=== PATIENT | male | born 1945 | race Caucasian/White ===

== ENCOUNTER 2021-10-01 09:44 | Outpatient (CLI) | payer MEDICARE, SELFPAY ==
[2021-10-01 11:00] LABS: Basophils Absolute Auto 0.1 K/mm3 (0.0-0.1); Basophils Percent Auto 0.9 % (0.2-1.2); Eosinophils Absolute Auto 0.1 K/mm3 (0-0.3); Eosinophils Percent Auto 1.3 % (0-4.4); Hematocrit 51.6 % (42.0-52.0); Hemoglobin 17.3 g/dL (14.0-18.0); Immature Granulocyte Absolute 0.07 K/mm3 (0.00-0.031); Immature Granulocyte Percent A 0.9 % (0-0.5); Lymphocytes Absolute Auto 1.04 K/mm3 (0.9-3.2); Lymphocytes Percent Auto 12.7 % (18.3-44.2); Mean Corpuscular HGB Conc 33.5 g/dl (32-36); Mean Corpuscular Hemoglobin 30.7 pg (26-34); Mean Corpuscular Volume 91.7 fl (80-100); Mean Platelet Volume 9.9 fl (7.4-10.4); Monocytes Absolute Auto 0.8 K/mm3 (0.1-0.6); Monocytes Percent Auto 10.1 % (2.6-8.5); Neutrophils Absolute Auto 6.1 K/mm3 (1.3-6.7); Neutrophils Percent Auto 74.1 % (45.5-73.1); Platelet Count Result 253 k/mm3 (150-375); Red Blood Count 5.63 M/mm3 (4.6-6.20); Red Cell Distribution Width 13.2 % (11.5-14.5); White Blood Count 8.2 K/mm3 (4.5-10.0)
[2021-10-01 11:03] LABS: Urine Cotinine NEGATIVE
[2021-10-01 11:05] LABS: Albumin Level 4.7 g/dL (3.5-5.1); Anion Gap 9 mmol/L (8-16); Blood Urea Nitrogen 19 mg/dL (9-20); Calcium 9.2 mg/dL (8.4-10.2); Carbon Dioxide 30 mmol/L (22-30); Chloride 97 mmol/L (98-107); Estimated Glomerular Filt Rate > 60; Glucose 115 mg/dL (65-110); Potassium 4.5 mmol/L (3.4-5.0); Sodium 136 mmol/L (137-145)
[2021-10-01 11:31] LABS: Hemoglobin A1C 5.5 % (<5.7)
== END 2021-10-01 09:45 | disposition home or self-care (01) ==
LOC: ANHSURGERY 09:50
PROVIDERS: PCP Internal Medicine; Visit Provider Orthopaedic Surgery
DX: Z01.812 Encounter for preprocedural laboratory examination (principal); M16.11 Unilateral primary osteoarthritis, right hip; Z51.81 Encounter for therapeutic drug level monitoring; Z79.899 Other long term (current) drug therapy
CPT/HCPCS: 80048; 80307; 82040; 83036; 85025; 87070

== ENCOUNTER 2021-10-15 01:15 | Day surgery (SDC) | payer MEDICARE, SELFPAY ==
[2021-10-01 09:57] VITALS: BMI 31.5
--- NOTE | 2021-10-01 10:14 | PC.NURSE ---
Report to the Outpatient Waiting Room, entrance under the green pavilion located off [facility], at time 0600 on date _10/15/21 . OR Time: . - You and your visitor will be asked a series of questions to screen for COVID 19 for your protection. - A mask is required within the hospital. - Only one visitor is allowed at this time. Patient visitors will be guided where to wait when not with patient. Preoperative COVID Testing Requirements: No COVID Test needed if: (proof is required; if not received patient will have Rapid Test prior to entry) - Patient has received COVID Vaccine at least 14 days prior to procedure date or - Patient has positive COVID test result within last 90 days of surgery date. COVID Test needed if above criteria is not met If not COVID vaccinated a COVID test must be conducted within 72 hours of surgery and patient is asked to isolate self from time of testing until procedure. You will go to the [facility] [[email or web address] Testing Site for your COVID testing. The [facility] site is located at the corner of [address] [facility]. You will only be called if COVID results are positive and your surgeon may reschedule your elective surgery date. Patients may have clear liquids (water, carbonated beverages, clear teas, apple juice) until 3 hours prior to surgery with a maximum of 20 ounces. - No food from midnight until time of surgery - Infants may have breast milk until 4 hours before surgery, infant formula 6 hours prior to surgery. - Children will be allowed to drink immediately following surgery. If applicable, please bring a bottle or sippy cup to assist with drinking. Juice, water, soda, and popsicles are readily available. For infants on formula, please bring formula the day of surgery. Pacifiers are allowed. Take the following medications with a SIP of water the morning of surgery: _ATENOLOL Medications to discontinue per physician NONE Date to take last dose Please no make-up, nail danish, hairspray, perfume, deodorant, or body powder the day of surgery. No jewelry (including any body piercings) or valuables the day of surgery, leave them at home. Please take a shower or bath the night before, or the morning of, surgery with an antibacterial soap. Wear comfortable, loose fitting clothing. Children are encouraged to wear pajamas. - Jewelry must be removed prior to entering the operating room. Rings and piercings that are not removed may be cut off. - The hospital will not accept responsibility for valuables. - Please leave all valuables, including medications, at home the day of surgery. If you are going home after surgery, a licensed tram driver must drive you home. - NO public transportation without another adult. - We recommend that an adult stay with you for 24 hours following discharge. - We also recommend that you do not drive, make important decision, drink alcoholic beverages, or take any drugs that were not prescribed by your health care provider for at least 24 hours after your discharge time. For Pediatric surgeries, we recommend two adults accompany the child home (only one inside the building at this time). Follow any additional instructions given to you from your surgeon. VERBAL instructions given to _PATIENT and asked if any additional questions and then verbalized understanding. Patient advised to call surgeon office or pre surgery nurse liaison [phone] if any additional questions.
[2021-10-01 10:36] VITALS: BP 145/65; PULSE 54; RESP 16; TEMP 37.2; O2SAT 100
--- NOTE | 2021-10-10 12:15 | PM.IMHP ---
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 Patient has been having pain from his arthritic hip for well over a year. He tried diclofenac but was unable to tolerate this due to GI upset. He has been getting treated for prostate cancer and has had an excellent recovery from this. Patient feels at this point is ready to proceed total hip arthroplasty. He does have severe arthritis in the right hip seen on the x-rays Chief Complaint: Right hip DJD Review of Systems Review of Systems: All systems reviewed & are unremarkable except as noted in HPI and below PMFSH Family History Family History Sibling Family history of kidney disease Father Family history of diabetes mellitus in first degree relative Other Hypertension Social History Social History Smoking status: Never smoker Additional smoking assessment comments: DENIES ANY FORM OF TOBACCO USE Alcohol intake: current Spiritual care concerns: No Meds Home Medications and Allergies Home Medications Medication Instructions Recorded Confirmed Type acetaminophen [Tylenol] 650 mg PO PRN PRN 10/01/21 10/01/21 History atenolol 100 mg PO QAM 10/01/21 10/01/21 History hydrochlorothiazide 25 mg PO DAILY 10/01/21 10/01/21 History lisinopril 40 mg PO DAILY 10/01/21 10/01/21 History omeprazole 40 mg PO DAILY 10/01/21 10/01/21 History simvastatin 40 mg PO HS 10/01/21 10/01/21 History tamsulosin 0.8 mg PO QAM 10/01/21 10/01/21 History Allergies Allergy/AdvReac Type Severity Reaction Status Date / Time No Known Allergies Allergy Unverified 10/01/21 09:58 Exam Narrative: 76-year-old male alert pleasant. He is 5 ft 8 and 221 lb. He walks with a stiff right hip gait. He notes pain in the anterior lateral aspect of right hip with weight-bearing. He has a 2+ posterior tibial artery and 1+ dorsalis pedis pulse palpable. No edema in either lower extremity. His right hip flexes from 0-90 degrees with anterior lateral hip pain. Internal rotation lacks 30? from neutral, external rotation is to 40?. Stinchfield maneuver causes a mild anterior lateral hip pain. He has normal abduction strength in lateral position. Skin around the hip and groin are normal. Resp: Auscultation: clear to auscultation bilaterally Cardio: Rate: regular rate Rhythm: regular rhythm Assessment and Plan Additional Plan 76-year-old male has severe arthritis of the right hip with rather severe symptoms on a daily basis. He feels ready to proceed with total hip arthroplasty. Surgical procedure as well as the risks and complications were discussed in detail and all questions were answered and we proceed. He will see his primary care doctor pre-surgical clearance. He has also seen cardiology and has had an echo cardiogram done. That showed normal left ventricular function with ejection fraction at 60% patient has been cleared from cardiology standpoint plan use Eliquis for DVT prophylaxis. His nasal swab was negative. Chem panel is creatinine is 1.10 with a GFR greater than 60. Rest of his Chem panel was all within normal limits. Hemoglobin 17.3 platelets were 253. Patient will avoid any aspirin or ibuprofen products from prior surgery.
--- NOTE | 2021-10-11 13:29 | WPDANESEPPF ---
Anes - Initial Pre Proc Eval Procedure: Operation Date: 10/15/21 07:30 Proposed Procedures p Right Total Hip Arthroplasty, Direct Anterior Approach - Driss Garcia MD Date/Time: 10/11/21 13:29 Surgeon: Driss Garcia MD Pre Op Diagnosis: OA right hip Patient Data Age: 76 Gender: M Height: 1.78 m Weight: 99.7 kg Last Vital Signs Temp 37.2 C 10/01/21 10:36 Pulse 54 L 10/01/21 10:36 Resp 16 10/01/21 10:36 BP 145/65 H 10/01/21 10:36 Pulse Ox 100 10/01/21 10:36 Allergies Allergy/AdvReac Type Severity Reaction Status Date / Time No Known Allergies Allergy Verified 10/15/21 07:05 Home Medications Medication Instructions Recorded Confirmed Type acetaminophen [Tylenol] 650 mg PO PRN PRN 10/01/21 10/15/21 History atenolol 100 mg PO QAM 10/01/21 10/15/21 History hydrochlorothiazide 25 mg PO DAILY 10/01/21 10/15/21 History lisinopril 40 mg PO DAILY 10/01/21 10/15/21 History omeprazole 40 mg PO DAILY 10/01/21 10/15/21 History simvastatin 40 mg PO HS 10/01/21 10/15/21 History tamsulosin 0.8 mg PO QAM 10/01/21 10/15/21 History Patient hx anesthesia problems: none Family hx anesthesia problems: none Results Review: All pre-operative results and documents have been reviewed as part of the pre-operative evaluation. [facility] Past Medical History Medical History (Updated 10/11/21 @ 13:31 by Hal Armstrong MD) HTN (hypertension) Hyperlipidemia Obesity Prostate CA Family History Family History Sibling Family history of kidney disease Father Family history of diabetes mellitus in first degree relative Other Hypertension Social History Social History Smoking status: Never smoker Additional smoking assessment comments: DENIES ANY FORM OF TOBACCO USE Alcohol intake: current Living arrangements: with family Spiritual care concerns: No Anes - Eval Final PreProcedure Day of Procedure 10/11/21 13:29 Patient weight: obese Heart: regular rate and rhythm Lungs: clear to auscultation and normal air movement Airway: Mallampati scale class II Neurological: alert and oriented Last oral intake: >/= 8 hours ASA classification: III Emergent: no Anesthetic plan: proceed Anesthesia type and monitoring: general and regional spinal Results Review: All pre-operative results and documents have been reviewed as part of the pre-operative evaluation. Informed Consent: The patient's anesthetic plan and its attendant risks and benefits were discussed with the patient/family/POA. Questions were solicited and answers provided to the satisfaction of the patient/family/POA.
[2021-10-15] VITALS (10 sets, daily range): BP systolic 109–177; BP diastolic 45–85; PULSE 45–63; RESP 12–18; TEMP 36.1–37.1; O2SAT 96–100; BMI 31.8
--- NOTE | ~2021-10-15 | XR_ITS ---
EXAMINATION: XR hip RT 1V w AP pelvis DATE: 10/15/2021 12:45 INDICATION: Postoperative evaluation following right total hip arthroplasty TECHNIQUE: Anteroposterior and lateral views of the right hip were obtained. COMPARISON: Intraoperative radiograph dated 10/15/2021 FINDINGS: Interval completion of the right total hip arthroplasty with replacement of a femoral broach with a n oncemented femoral component. The final arthroplasty appears well seated in near anatomic alignment. Expected subcutaneous gas in the postoperative bed. No fractures identified. Left hip joint space is normal. IMPRESSION: 1. Right total hip arthroplasty, negative for postoperative purposes. Reviewed, dictated and finalized at location H. [employer]
--- NOTE | ~2021-10-15 | XR_ITS ---
EXAMINATION: XR surgery orthopedic DATE: 10/15/2021 11:48 INDICATION: Intraoperative evaluation during right total hip arthroplasty TECHNIQUE: A couple frontal views of the right hip was obtained. COMPARISON: None. FINDINGS: Intraoperative image during a right total hip arthroplasty demonstrate placement of an acetabular com ponent which appears in near anatomic alignment on the single image provided. A femoral broach is in place with the proximal tip centered over the acetabular component. Portions of the pelvis are exclu ded from the [id number]. No fractures in the visualized bones. Expected gas in the soft tissues of the operative bed. IMPRESSION: 1. Expected appearance during right total hip arthroplasty. Reviewed, dictated and finalized at location H. [employer]
[2021-10-15] MEDS: LACTATED RINGERS 1,000 ML 30 ML IV CONT (06:45)
[2021-10-15] MEDS: TRANEXAMIC ACID 1,000MG/ISO100 1,000 MG/100 ML BAG 200 MG IVPB (07:11)
[2021-10-15] MEDS: ACETAMINOPHEN 500 MG TABLET 1000 MG PO ×2 (07:13→18:49)
--- NOTE | 2021-10-15 07:18 | WPDHPUPDATE1 ---
History and Physical Update Update Date/Time: 10/15/21 07:18 History and Physical has been reviewed, including an updated exam of the patient. There are NO changes in the patient's condition. Risks, benefits, and alternatives have been discussed and questions answered. Patient agrees to proceed with procedure.
[2021-10-15] MEDS: ceFAZolin 2 GM/D5W 50 ML 2 GM/50 ML BAG IVPB (07:32)
[2021-10-15] MEDS: ceFAZolin SODIUM 1 GM VIAL 3 GM IRRIGATION (08:41)
[2021-10-15] MEDS: TRANEXAMIC ACID 1,000 MG/10 ML AMPUL 1000 MG IV PUSH (11:48)
[2021-10-15] MEDS: ceFAZolin SODIUM 1 GM VIAL 2 GM IV PUSH (11:50)
--- NOTE | 2021-10-15 12:10 | SUR.OPER ---
CELL SAVER RETURN 370ML GIVEN PER ANESTHESIA
--- NOTE | 2021-10-15 12:33 | P.OP_ITS ---
Procedure Note - Detailed Date of Procedure 10/15/21 Pre-op Diagnosis OA right hip Post-op Diagnosis same Procedure Performed Direct anterior approach right total hip arthroplasty Surgeon Driss Garcia MD Steward/[employer] Chris Anesthesia general and spinal Description of Procedure Patient was brought to the operating room and spinal anesthesia was administered. Boots were applied to the feet with padding and he was transferred the OSI [place] table and the right hip prepped draped usual fashion. He received 2 g of Ancef weight based vancomycin 1 g of tranexamic acid preoperatively. A 10 cm longitudinal incision was made starting 3 cm lateral to the ASIS. Dissection was carried down to the fascia over the tensor fascia kathryn which was longitudinally incised and elevated off the anterior 1/2 the tensor fascia kathryn muscle. The interval between rectus femoris and tensor fascia kathryn was developed and crossing branches of ascending lateral femoral circumflex vessels were ligated with suture and divided. Retractor placed in the anterior capsule the hip abducted internally rotated and the gluteus minimus carefully dissected free of the lateral capsule. Standard capsulotomy was performed. Femoral neck osteotomy was made according to preoperative template. Femoral head was removed and measured 53 mm in diameter. Acetabulum was exposed labrum excised we medialized with a 44 Reamer reamed up to the 55 in chose the 56 cup. It would not see to we gently reamed to 56 on the periphery and then the 56 cup seated with a excellent press fit. Single screw was placed into the ilium. Thirty-six inner diameter liner placed without difficulty. Femur was externally rotated extended in the interval between conjoined tendon and piriformis incised allowing the piriformis to flip posteriorly. The femur was broached to a size 8 and trialed. We initially trialed with the standard neck +5 head. This gave excellent stability but x-ray showed that we had diminished offset and length and a few mm and the leg lengths. Broach had a slight wiggle on torsional stress we were able to broach up to a size 9 countersink 2 mm we trialed with the high offset neck and the 1.5 head and this gave equal leg lengths and offset. The size 9 high offset Actis stem was fully seated. With excellent press fit. The stainless steel 1.5 x 36 head was impacted on the clean and dried trunnion. Wound again irrigated antibiotic solution hip reduced stability reconfirmed. Capsule was reapproximated with 2. Vicryl. Fascia of the tensor fascia kathryn closed with running 1. Vicryl. A drain was placed deep in the subQ and skin closed with 2-0 subcutaneous Vicryl and glue. The drain was apparently inadvertently removed during the dressing application. EBL was 750 cc. Three hundred seventy-five given back as Cell Saver. Two additional g of Ancef and 1 g of tranexamic acid given at time of wound closure. Closer to the end the operation patient had some bilious emesis and a small amount and an endotracheal tube was then placed to protect his airway the ETT suction was clear. Estimated Blood Loss 750 Drains No Packing No Pathology none sent Complications No immediate complications Condition stable Disposition PACU
--- NOTE | 2021-10-15 14:00 | ADMGEN ---
This patient, [facility] Cintron, was admitted to [facility] Surgery-2. Patient/family oriented to hospital policies and general routines including ID bracelet, bed and alarms, visiting hours, pain management, procedures, bathroom and other care routines, personal items, smoking policy, room service/diet, and visiting hours. Information on how to activate the Rapid Response Team has been discussed. Patient/Family are encouraged to report perceived risks to care and to ask questions if they do not understand what they are told or what they should do.
[2021-10-15] MEDS: ONDANSETRON INJ 4 MG/2 ML VIAL IV PUSH (14:59)
[2021-10-15] MEDS: SODIUM CHLORIDE 0.9% IV 1,000 ML 125 ML IV CONT (15:00)
--- NOTE | 2021-10-15 15:00 | WPDCN ---
Assessment and Plan Assessment and plan (1) Osteoarthritis of right hip: Code(s): M16.11 - Unilateral primary osteoarthritis, right hip Status: Acute Assessment and Plan: Postoperative day 0 status post direct anterior approach right total hip arthroplasty. Wound care, pain control, and DVT prophylaxis will be deferred to Dr. Garcia. PT/OT consulted. Check hemoglobin and hematocrit in a.m. (2) Hypertension: Code(s): I10 - Essential (primary) hypertension Status: Acute Assessment and Plan: Blood pressures were reviewed and they have been stable postoperatively. His antihypertensives will be reviewed and resumed as appropriate. (3) Hyperlipidemia: Code(s): E78.5 - Hyperlipidemia, unspecified Status: Acute Assessment and Plan: Continue statin and check LFTs in a.m.. (4) Benign prostatic hyperplasia: Code(s): N40.0 - Benign prostatic hyperplasia without lower urinary tract symptoms Status: Acute Assessment and Plan: Continue tamsulosin. Monitor I/O and watch for postoperative urinary retention. (5) Gastroesophageal reflux disease: Code(s): K21.9 - Gastro-esophageal reflux disease without esophagitis Status: Acute Assessment and Plan: Continue PPI. Additional Plan Thank you for allowing us to participate in this patient's care. Please do not hesitate to contact us with any questions. Supervising physician for this medical consultation is Dr. Mehran Fisher. HPI Data of Consult Date/Time: 10/15/21 15:00 Requesting Physician: Driss Garcia MD Primary Care Provider: Andrés BrownMD Consult Narrative Narrative: This is a pleasant 76-year-old male with osteoarthritis, hypertension, hyperlipidemia, GERD, and prostate cancer whom the hospitalist service has been consulted for management of his medical conditions postoperatively. He has had longstanding pain in his right hip that has not been amenable to conservative outpatient treatment and thus he elected for replacement today. His surgery was performed under general and spinal anesthesia with an estimated blood loss of 750 mL. Postoperatively has minimal discomfort in his hip though he does mention that his low back is a bit sore from the bed. He had mild nausea postoperatively but was able to eat dinner without issue. He has been up using a walker with physical therapy and did well with that. He denies fever, chills, sweats, chest pain, shortness of breath, and vomiting. He also denies paresthesias, skin color, and temperature changes distal to the surgical site. Review of Systems Review of Systems: Twelve systems were reviewed. No recent cold or flu symptoms. He denies sick contacts. No history of venous thromboembolism. Except as documented, all other systems were reviewed and are negative. [facility] Past Medical History Medical History (Updated 10/15/21 @ 22:52 by Maria A Dinero PA-C) Benign prostatic hyperplasia Gastroesophageal reflux disease History of shingles Hyperlipidemia Hypertension Obesity Surgical History Surgical History (Updated 10/15/21 @ 22:51 by Maria A Dinero PA-C) History of bilateral cataract extraction History of laparoscopic cholecystectomy (11/22/11) History of lumbar surgery (2018) History of right hip replacement (10/15/21) Family History Family History Sibling Family history of kidney disease Father Family history of diabetes mellitus in first degree relative Other Hypertension Social History Social History (Updated 10/15/21 @ 22:51 by Maria A Dinero PA-C) Social History: Surrogate decision maker: Anel Cintron, . Code status: Full code. Smoking status: Never smoker Alcohol intake: current Alcohol use details: Social alcohol use in
[2021-10-15] MEDS: SENNA/DOCUSATE SODIUM TABLET 2 TAB PO (17:14)
[2021-10-15] MEDS: CELECOXIB 200 MG CAPSULE PO (17:14)
[2021-10-15] MEDS: SIMVASTATIN 20 MG TABLET 40 MG PO (20:23)
[2021-10-15] MEDS: APIXABAN 2.5 MG TABLET PO (20:23)
[2021-10-15] MEDS: oxyCODONE HCL (*CRX) 5 MG TAB IR PO (20:23)
[2021-10-15] MEDS: PANTOPRAZOLE 40 MG TABLET PO (20:23)
[2021-10-16] VITALS: BP 121/47; PULSE 59; RESP 18; TEMP 37.1; O2SAT 93
[2021-10-16] MEDS: ACETAMINOPHEN 500 MG TABLET 1000 MG PO ×3 (00:01→12:20)
[2021-10-16 04:00] VITALS: BP 142/56; PULSE 71; RESP 16; TEMP 37.3; O2SAT 96
[2021-10-16] MEDS: oxyCODONE HCL (*CRX) 5 MG TAB IR PO (05:26)
[2021-10-16 06:18] LABS: Basophils Percent Auto 0.2 % (0.2-1.2); Eosinophils Percent Auto 0.1 % (0-4.4); Hematocrit 40.8 % (42.0-52.0); Hemoglobin 13.6 g/dL (14.0-18.0); Immature Granulocyte Absolute 0.12 K/mm3 (0.00-0.031); Immature Granulocyte Percent A 0.7 % (0-0.5); Lymphocytes Absolute Auto 0.79 K/mm3 (0.9-3.2); Lymphocytes Percent Auto 4.8 % (18.3-44.2); Mean Corpuscular HGB Conc 33.3 g/dl (32-36); Mean Corpuscular Hemoglobin 30.6 pg (26-34); Mean Corpuscular Volume 91.7 fl (80-100); Mean Platelet Volume 10.3 fl (7.4-10.4); Monocytes Absolute Auto 1.5 K/mm3 (0.1-0.6); Neutrophils Absolute Auto 14.1 K/mm3 (1.3-6.7); Neutrophils Percent Auto 85.2 % (45.5-73.1); Platelet Count Result 196 k/mm3 (150-375); Red Blood Count 4.45 M/mm3 (4.6-6.20); Red Cell Distribution Width 13.6 % (11.5-14.5); White Blood Count 16.5 K/mm3 (4.5-10.0)
[2021-10-16 06:44] LABS: Anion Gap 5 mmol/L (8-16); Blood Urea Nitrogen 26 mg/dL (9-20); Carbon Dioxide 26 mmol/L (22-30); Chloride 98 mmol/L (98-107); Estimated CRCL calculation 59 ml/min; Estimated Glomerular Filt Rate > 60; Glucose 112 mg/dL (65-110); Potassium 4.1 mmol/L (3.4-5.0); Sodium 129 mmol/L (137-145)
[2021-10-16 06:56] LABS: Alanine Aminotransferase 14 U/L (4-50); Albumin Level 3.5 g/dL (3.5-5.1); Alkaline Phosphatase 43 U/L (38-126); Aspartate Amino Transferase 29 U/L (17-59); Bilirubin,Total 0.9 mg/dL (0.2-1.3); Magnesium 1.8 mg/dL (1.6-2.3)
[2021-10-16 08:00] VITALS: BP 129/42; PULSE 68; RESP 16; TEMP 37.4; O2SAT 97
[2021-10-16] MEDS: CELECOXIB 200 MG CAPSULE PO (08:00)
--- NOTE | 2021-10-16 10:00 | P.PNAN_ITS ---
Anes - Prog Note Post-Op Date/Time: 10/16/21 10:00 Cardiovascular status: normal Respiratory status: normal Airway patency: baseline Mental status: baseline Post-Op hydration status: normal Vital Signs: Last Vital Signs Temp 99.2 F 10/16/21 04:00 Pulse 71 10/16/21 04:00 Resp 16 10/16/21 04:00 BP 142/56 H 10/16/21 04:00 Pulse Ox 96 10/16/21 04:00 Pain Score (VAS): 0/10 I/O: Intake & Output 10/15/21 10/16/21 10/16/21 23:59 07:59 15:59 Intake Total 250 1750 50 Output Total 160 200 Balance 90 1550 50 Laboratory Tests 10/16/21 05:47 10/16/21 05:47 10/16/21 10/16/21 10/16/21 05:47 05:47 05:47 WBC 16.5 H RBC 4.45 L Hgb 13.6 L D Hct 40.8 L MCV 91.7 MCH 30.6 MCHC 33.3 RDW 13.6 Plt Count 196 MPV 10.3 Immature Gran % (Auto) 0.7 H Neut % (Auto) 85.2 H Lymph % (Auto) 4.8 L [place] % (Auto) 9.0 H Eos % (Auto) 0.1 Baso % (Auto) 0.2 Lymph # (Auto) 0.79 L [place] # (Auto) 1.5 H Eos # (Auto) 0.0 Baso # (Auto) 0.0 Abs Immat Gran (auto) 0.12 H Absolute Neuts (auto) 14.1 H Absolute Nucleated RBC 0.0 Nucleated RBC % 0.0 Sodium 129 L Potassium 4.1 Chloride 98 Carbon Dioxide 26 Anion Gap 5 L BUN 26 H Creatinine 1.10 Estim Creat Clear Calc 59 Estimated GFR > 60 Glucose 112 H Calcium 8.0 L Magnesium 1.8 Total Bilirubin 0.9 Direct Bilirubin 0.0 AST 29 ALT 14 Alkaline Phosphatase 43 Total Protein 6.0 L Albumin 3.5 Patient Feedback: Patient satisfied with anesthetic care.
[2021-10-16] MEDS: polyethylene glycoL 3350 17 GM POWD.PACK PO (10:12)
[2021-10-16] MEDS: TAMSULOSIN HCL 0.4 MG CAPSULE 0.8 MG PO (10:12)
[2021-10-16 10:15] VITALS: PULSE 70
[2021-10-16] MEDS: PANTOPRAZOLE 40 MG TABLET PO (10:15)
[2021-10-16] MEDS: atenoloL 50 MG TABLET 100 MG PO (10:15)
[2021-10-16] MEDS: APIXABAN 2.5 MG TABLET PO (10:15)
[2021-10-16] MEDS: SENNA/DOCUSATE SODIUM TABLET 2 TAB PO (10:15)
--- NOTE | 2021-10-16 10:31 | PM.IMPN ---
Progress Note: A&P Assessment and Plan (1) Osteoarthritis of right hip: Code(s): M16.11 - Unilateral primary osteoarthritis, right hip Status: Acute Assessment and Plan: Postoperative day 0 status post direct anterior approach right total hip arthroplasty. Wound care, pain control, and DVT prophylaxis will be deferred to Dr. Garcia. PT/OT consulted. Check hemoglobin and hematocrit in a.m. (2) Hypertension: Code(s): I10 - Essential (primary) hypertension Status: Acute Assessment and Plan: Blood pressures were reviewed and they have been stable postoperatively. His antihypertensives will be reviewed and resumed as appropriate. (3) Hyperlipidemia: Code(s): E78.5 - Hyperlipidemia, unspecified Status: Acute Assessment and Plan: Continue statin and check LFTs in a.m.. (4) Benign prostatic hyperplasia: Code(s): N40.0 - Benign prostatic hyperplasia without lower urinary tract symptoms Status: Acute Assessment and Plan: Continue tamsulosin. Monitor I/O and watch for postoperative urinary retention. (5) Gastroesophageal reflux disease: Code(s): K21.9 - Gastro-esophageal reflux disease without esophagitis Status: Acute Assessment and Plan: Continue PPI. Additional Plan Thank you for allowing us to participate in this patient's care. Please do not hesitate to contact us with any questions. Supervising physician for this medical consultation is Dr. Mehran Fisher. Subjective Date/time seen: 10/16/21 10:31 Review of Systems Review of Systems: All systems reviewed & are unremarkable except as noted in HPI and below Constitutional: Constitutional: Denies excessive sweating, Denies headache(s), Denies increased appetite, Denies snoring and Denies weight gain Eyes: Eyes: Denies exophthalmos, Denies diplopia, Denies floaters and Denies loss of peripheral vision ENT: Denies facial pain, Denies headache(s), Denies odynophagia and Denies tinnitus Respiratory: Respiratory: Denies snoring Gastrointestinal: Gastrointestinal: Denies odynophagia Neurologic: Denies headache(s) Endocrine: Endocrine: Denies excessive sweating Exam Narrative: General: Well-developed elderly gentleman in the semi-Rose position in bed in no distress. Weight: 100.7 kg. BMI: 31.9. HEENT: PERRL, EOMI. Sclerae anicteric. Oral mucosa moist. Oropharynx clear. Neck: Supple. Respiratory: Lungs are clear to auscultation bilaterally. Cardiovascular: Regular rate and rhythm with S1-S2. Gastrointestinal: Abdomen is soft, nontender, and nondistended with positive bowel sounds. Skin: Warm and dry. No rash or lesions on limited exam. Extremities: No cyanosis, clubbing, or edema. Radial and pedal pulses intact. Musculoskeletal: Right hip dressing is clean, dry, and intact. No swelling or hematoma noted. He is neurovascular intact distal to the surgical site. Neurological: Alert. Cranial nerves 2-12 grossly intact. No gross focal deficits to casual conversation. Psychiatric: Pleasant and cooperative with normal mood and affect. Judgment and insight intact. Resp: Auscultation: clear to auscultation bilaterally Cardio: Rate: regular rate Rhythm: regular rhythm Objective Data Vital Signs Vital Signs: Vital Signs - 24 hr 10/15/21 12:32 10/15/21 12:45 10/15/21 13:00 Temperature 36.8 C Pulse Rate 45 L 58 L 61 Respiratory Rate 14 12 13 Blood Pressure 148/56 H 113/63 121/85 Pulse Oximetry 100 100 100 10/15/21 13:15 10/15/21 13:30 10/15/21 13:45 Temperature Pulse Rate 61 57 L 48 L Respiratory Rate 12 13 13 Blood Pressure 123/61 123/61 126/52 L Pulse Oximetry 96 96 96 10/15/21 13:55 10/15/21 17:30 10/15/21 20:00 Temperature 36.1 C L 37.1 C Pulse Rate 52 L 63 55 L Respiratory Rate 16 16 16 Blood Pressure 112/53 L 130/59
[2021-10-16 12:24] VITALS: BP 117/44; PULSE 57; RESP 16; TEMP 36.6; O2SAT 100
--- NOTE | 2021-10-16 14:30 | PC.NURSE ---
1430-Chiqui Ram NP rounded at bedside and OK with patient discharging home.
--- NOTE | 2021-10-16 14:59 | PM.PNORT ---
Progress Note: A&P Additional Plan Patient is postoperative day 1 after right total hip arthroplasty. He is doing well. He has no pain. He had a little bit of a cough this morning but that has completely resolved. Is afebrile with stable vital signs. His hemoglobin was 13.6 representing a mild acute blood loss anemia. His wound looks normal without significant swelling. It is dry. He has intact sensation motor function the right foot. Is able to transfer from sitting to standing position without difficulty today and is tolerating weight-bearing with his walker. He would like to go home. Will continue with the same orders. Subjective Subjective Date/Time Seen: 10/16/21 14:59 Objective Data Vital Signs Vital Signs: Vital Signs - 24 hr 10/15/21 17:30 10/15/21 20:00 10/16/21 00:00 Temperature 36.1 C L 37.1 C 37.1 C Pulse Rate 63 55 L 59 L Respiratory Rate 16 16 18 Blood Pressure 130/59 L 109/45 L 121/47 L Pulse Oximetry 96 97 93 10/16/21 04:00 10/16/21 08:00 10/16/21 10:15 Temperature 37.3 C 37.4 C Pulse Rate 71 68 70 Respiratory Rate 16 16 Blood Pressure 142/56 H 129/42 L Pulse Oximetry 96 97 10/16/21 12:24 Temperature 36.6 C Pulse Rate 57 L Respiratory Rate 16 Blood Pressure 117/44 L Pulse Oximetry 100 Intake/Output Intake/Output: Intake & Output 10/13/21 10/14/21 10/15/21 10/16/21 23:59 23:59 23:59 23:59 Intake Total 1050 2040 Output Total 210 450 Balance 840 1590 Meds/Results Medications: Active Medications Generic Name Dose Route Start Last Admin Trade Name Freq PRN Reason Stop Dose Admin Acetaminophen 1,000 mg 10/15/21 18:00 10/16/21 12:20 Acetaminophen 500 Mg Tablet PO 1,000 mg Q6H MILDRED Administration Apixaban 2.5 mg 10/15/21 21:00 10/16/21 10:15 Apixaban 2.5 Mg Tablet PO 2.5 mg Q12HR MILDRED Administration Atenolol 100 mg 10/16/21 09:00 10/16/21 10:15 Atenolol 50 Mg Tablet PO 100 mg QAM MILDRED Administration Celecoxib 200 mg 12/27/21 17:00 10/16/21 08:00 Celecoxib 200 Mg Capsule PO 200 mg BIDWM MILDRED Administration Morphine Sulfate 2 mg 10/15/21 13:49 Morphine Sulfate (*Crx) 2 Mg/Ml Inj IV PUSH Q1H PRN Pain Rated 7-10 Naloxone HCl 0.1 mg 10/15/21 13:49 Naloxone Hcl 0.4 Mg/Ml Vial IV PUSH Q2M PRN Opiate Reversal Ondansetron HCl 4 mg 10/15/21 13:49 10/15/21 14:59 Ondansetron Inj 4 Mg/2 Ml Vial IV PUSH 4 mg Q4H PRN Administration Nausea And Vomiting Oxycodone HCl 5 mg 10/15/21 17:00 10/16/21 14:22 Oxycodone Hcl (*Crx) 5 Mg Tab Ir PO Not Given Q4HR MILDRED Oxycodone HCl 5 mg 10/15/21 13:49 Oxycodone Hcl (*Crx) 5 Mg Tab Ir PO Q4H PRN Pain Rated 4-10 Pantoprazole Sodium 40 mg 10/15/21 21:00 10/16/21 10:15 Pantoprazole 40 Mg Tablet PO 40 mg Q12HR MILDRED Administration Polyethylene Glycol 17 gm 10/16/21 09:00 10/16/21 10:12 Polyethylene Glycol 3350 17 Gm Powd.Pack PO 17 gm QAM MILDRED Administration Senna/Docusate Sodium 2 tab 10/15/21 17:00 10/16/21 10:15 Senna/Docusate Sodium Tablet PO 2 tab BID MILDRED Administration Simvastatin 40 mg 10/15/21 21:00 10/15/21 20:23 Simvastatin 20 Mg Tablet PO 40 mg HS MILDRED Administration Tamsulosin HCl 0.8 mg 10/16/21 09:00 10/16/21 10:12 Tamsulosin Hcl 0.4 Mg Capsule PO 0.8 mg QAM MILDRED Administration Radiology Results: ITS Impressions Intraoperative X-Ray 10/15/21 11:59 IMPRESSION: 1. Expected appearance during right total hip arthroplasty. Hip/Pelvis X-Ray 10/15/21 12:53 IMPRESSION: 1. Right total hip arthroplasty, negative for postoperative purposes. Labs Labs: Laboratory Results - last 24 hr 10/16/21 10/16/21 10/16/21 05:47 05:47 05:47 WBC 16.5 H RBC 4.45 L Hgb 13.6 L D Hct 40.8 L MCV 91.7 MCH 30.6 MCHC 33.3 RDW 13.6 Plt Count 196 MPV 10.3 Immature Gran % (Auto) 0.7 H Neut % (Auto) 85.2 H Lymph %
--- NOTE | 2021-10-16 15:04 | PM.PNORT ---
Progress Note: A&P Assessment and Plan (1) History of right hip replacement: Onset Date: 10/15/21 Code(s): Z96.641 - Presence of right artificial hip joint Status: Inactive Subjective Subjective Date/Time Seen: 10/16/21 15:04 Objective Data Vital Signs Vital Signs: Vital Signs - 24 hr 10/15/21 17:30 10/15/21 20:00 10/16/21 00:00 Temperature 36.1 C L 37.1 C 37.1 C Pulse Rate 63 55 L 59 L Respiratory Rate 16 16 18 Blood Pressure 130/59 L 109/45 L 121/47 L Pulse Oximetry 96 97 93 10/16/21 04:00 10/16/21 08:00 10/16/21 10:15 Temperature 37.3 C 37.4 C Pulse Rate 71 68 70 Respiratory Rate 16 16 Blood Pressure 142/56 H 129/42 L Pulse Oximetry 96 97 10/16/21 12:24 Temperature 36.6 C Pulse Rate 57 L Respiratory Rate 16 Blood Pressure 117/44 L Pulse Oximetry 100 Intake/Output Intake/Output: Intake & Output 10/13/21 10/14/21 10/15/21 10/16/21 23:59 23:59 23:59 23:59 Intake Total 1050 2040 Output Total 210 450 Balance 840 1590 Meds/Results Medications: Active Medications Generic Name Dose Route Start Last Admin Trade Name Freq PRN Reason Stop Dose Admin Acetaminophen 1,000 mg 10/15/21 18:00 10/16/21 12:20 Acetaminophen 500 Mg Tablet PO 1,000 mg Q6H MILDRED Administration Apixaban 2.5 mg 10/15/21 21:00 10/16/21 10:15 Apixaban 2.5 Mg Tablet PO 2.5 mg Q12HR MILDRED Administration Atenolol 100 mg 10/16/21 09:00 10/16/21 10:15 Atenolol 50 Mg Tablet PO 100 mg QAM MILDRED Administration Celecoxib 200 mg 10/15/21 17:00 10/16/21 08:00 Celecoxib 200 Mg Capsule PO 200 mg BIDWM MILDRED Administration Morphine Sulfate 2 mg 10/15/21 13:49 Morphine Sulfate (*Crx) 2 Mg/Ml Inj IV PUSH Q1H PRN Pain Rated 7-10 Naloxone HCl 0.1 mg 10/15/21 13:49 Naloxone Hcl 0.4 Mg/Ml Vial IV PUSH Q2M PRN Opiate Reversal Ondansetron HCl 4 mg 10/15/21 13:49 10/15/21 14:59 Ondansetron Inj 4 Mg/2 Ml Vial IV PUSH 4 mg Q4H PRN Administration Nausea And Vomiting Oxycodone HCl 5 mg 10/15/21 17:00 10/16/21 14:22 Oxycodone Hcl (*Crx) 5 Mg Tab Ir PO Not Given Q4HR MILDRED Oxycodone HCl 5 mg 10/15/21 13:49 Oxycodone Hcl (*Crx) 5 Mg Tab Ir PO Q4H PRN Pain Rated 4-10 Pantoprazole Sodium 40 mg 10/15/21 21:00 10/16/21 10:15 Pantoprazole 40 Mg Tablet PO 40 mg Q12HR MILDRED Administration Polyethylene Glycol 17 gm 10/16/21 09:00 10/16/21 10:12 Polyethylene Glycol 3350 17 Gm Powd.Pack PO 17 gm QAM MILDRED Administration Senna/Docusate Sodium 2 tab 10/15/21 17:00 10/16/21 10:15 Senna/Docusate Sodium Tablet PO 2 tab BID MILDRED Administration Simvastatin 40 mg 10/15/21 21:00 10/15/21 20:23 Simvastatin 20 Mg Tablet PO 40 mg HS MILDRED Administration Tamsulosin HCl 0.8 mg 10/16/21 09:00 10/16/21 10:12 Tamsulosin Hcl 0.4 Mg Capsule PO 0.8 mg QAM MILDRED Administration Radiology Results: ITS Impressions Intraoperative X-Ray 10/15/21 11:59 IMPRESSION: 1. Expected appearance during right total hip arthroplasty. Hip/Pelvis X-Ray 10/15/21 12:53 IMPRESSION: 1. Right total hip arthroplasty, negative for postoperative purposes. Labs Labs: Laboratory Results - last 24 hr 10/16/21 10/16/21 10/16/21 05:47 05:47 05:47 WBC 16.5 H RBC 4.45 L Hgb 13.6 L D Hct 40.8 L MCV 91.7 MCH 30.6 MCHC 33.3 RDW 13.6 Plt Count 196 MPV 10.3 Immature Gran % (Auto) 0.7 H Neut % (Auto) 85.2 H Lymph % (Auto) 4.8 L [place] % (Auto) 9.0 H Eos % (Auto) 0.1 Baso % (Auto) 0.2 Lymph # (Auto) 0.79 L [place] # (Auto) 1.5 H Eos # (Auto) 0.0 Baso # (Auto) 0.0 Abs Immat Gran (auto) 0.12 H Absolute Neuts (auto) 14.1 H Absolute Nucleated RBC 0.0 Nucleated RBC % 0.0 Sodium 129 L Potassium 4.1 Chloride 98 Carbon Dioxide 26 Anion Gap 5 L BUN 26 H Creatinine 1.10 Estim Creat Clear Calc 59
--- NOTE | 2021-10-16 15:31 | PM.DS ---
DS: Admitting Diagnosis Discharge Date 10/16/2021 Admitting Diagnosis OA right hip, pre-planned right total hip arthroplasty DS: Discharge Diagnosis Discharge Diagnosis (1) Osteoarthritis of right hip: Code(s): M16.11 - Unilateral primary osteoarthritis, right hip Status: Acute Assessment and Plan: status post direct anterior approach right total hip arthroplasty. Wound care, pain control, and DVT prophylaxis will be deferred to Dr. Garcia. PT/OT consulted. dressed and getting around well - patient ready and wants to go home now. hemoglobin and hematocrit 13.6/40.8 today. with platelets 196 (2) Hypertension: Code(s): I10 - Essential (primary) hypertension Status: Acute Assessment and Plan: Blood pressures were reviewed and they have been stable postoperatively. His antihypertensives will be reviewed and resumed as appropriate. (3) Hyperlipidemia: Code(s): E78.5 - Hyperlipidemia, unspecified Status: Acute Assessment and Plan: Continue statin LFTs all WNL this morning. (4) Benign prostatic hyperplasia: Code(s): N40.0 - Benign prostatic hyperplasia without lower urinary tract symptoms Status: Acute Assessment and Plan: Continue tamsulosin. Monitor I/O 450 ml urine out + 1 unmeasured void out today. encouraged patient to urinate often at discharge education in person prior to D/C (5) Gastroesophageal reflux disease: Code(s): K21.9 - Gastro-esophageal reflux disease without esophagitis Status: Acute Assessment and Plan: Continue PPI. no epigastric pain, no N/V/reflux. (6) History of right hip replacement: Onset Date: 10/15/21 Code(s): Z96.641 - Presence of right artificial hip joint Status: Inactive Assessment and Plan: no new complaints. DS: Summary Hospital Course Hospital Course: 10/15/21 OA right hip treated by surgical Direct anterior approach right total hip arthroplasty by Surgeon: Driss Garcia MD. Patient recovering well. H/H stable, VS stable, voiding. Patient dressed and ready to go home. His will be assisting him. Ortho recommended: Use walker full-time weight-bearing as tolerated on right leg. Had patient hold his Lisinopril or Hydrochlorothiazide since admitted to the hospital and your blood pressures have been well controlled with your other medication Atenolol. He is to Keep all wounds or surgical incisions CLEAN and DRY, and Continue to use your Walker for all transfers. Stay well hydrated. Try to urinate every 2-3 hours. Avoid retaining urine or sitting for prolonged periods of time. Time Spent with Patient Time attestation: Total time spent providing and/or coordinating discharge services: 45 minutes Exam Narrative: General: Well-developed elderly gentleman in a chair, dressed and ready to go home, in no distress. Weight: 100.7 kg. BMI: 31.9. HEENT: PERRL, EOMI. Sclerae anicteric. Oral mucosa moist. Oropharynx clear. Neck: Supple. Respiratory: Lungs are clear to auscultation bilaterally. Cardiovascular: Regular rate and rhythm with S1-S2. Gastrointestinal: Abdomen is soft, nontender, and nondistended with positive bowel sounds. Skin: Warm and dry. No rash or lesions on limited exam. Extremities: No cyanosis, clubbing, or edema. Radial and pedal pulses intact. Musculoskeletal: Right hip dressing is clean, dry, and intact. No swelling or hematoma noted. He is neurovascular intact distal to the surgical site. Neurological: Alert. Cranial nerves 2-12 grossly intact. No gross focal deficits to casual conversation. Psychiatric: Pleasant and cooperative with normal mood and affect. Judgment and insight intact. Resp: Auscultation: clear to auscultation bilaterally Cardio: Rate: regular rate Rhythm: regular rhythm DS: Data Data Completed and Pending Labs on day of discharge: Labs from last 24 hours 10/16/21 10/16/21 10/16/21 05:47 05:47 0
== END 2021-10-16 15:49 | disposition home or self-care (01) ==
LOC: ANHSURGERY 05:46 → ANHSUROVER 13:56
PROVIDERS: Physician Assistant; PCP Internal Medicine; Visit Provider Orthopaedic Surgery
PROC: (CPT 27130; principal; 2021-10-15 07:30)
DX: M16.11 Unilateral primary osteoarthritis, right hip (principal); D62 Acute posthemorrhagic anemia; I10 Essential (primary) hypertension; E78.5 Hyperlipidemia, unspecified; N40.0 Benign prostatic hyperplasia without lower urinary tract symptoms; K21.9 Gastro-esophageal reflux disease without esophagitis; E66.9 Obesity, unspecified; Z68.31 Body mass index [BMI] 31.0-31.9, adult; Z85.46 Personal history of malignant neoplasm of prostate
CPT/HCPCS: 27130; 36415; 73501; 80048; 80076; 83735; 85025; 86850; 86900; 86901; 97110; 97116; 97162; 97165; 97530; 97535; A9270; C1776; J0171; J0330; J0690; J1100; J1885; J2250; J2270; J2370; J2405; J2704; J2710; J2795; J3010; J3370; J7030; J7120

== ENCOUNTER 2021-12-07 00:14 | Day surgery (SDC) | payer MEDICARE, SELFPAY ==
[2021-11-22 14:17] VITALS: BMI 31.3
[2021-12-07 08:20] VITALS: BP 149/63; PULSE 74; RESP 18; TEMP 36.6; O2SAT 100; BMI 30.7
--- NOTE | 2021-12-07 08:41 | WPDANESEPPF ---
Anes - Initial Pre Proc Eval Procedure: Operation Date: 12/07/21 10:00 Proposed Procedures p Screening Colonoscopy - Jose Quintero MD Date/Time: 12/07/21 08:41 Surgeon: Jose Quintero MD Pre Op Diagnosis: neoplasm screening Patient Data Age: 76 Gender: M Height: 1.78 m Weight: 97.1 kg Last Vital Signs Temp 36.6 C 12/07/21 08:20 Pulse 74 12/07/21 08:20 Resp 18 12/07/21 08:20 BP 149/63 H 12/07/21 08:20 Pulse Ox 100 12/07/21 08:20 Allergies Allergy/AdvReac Type Severity Reaction Status Date / Time No Known Allergies Allergy Verified 12/07/21 08:28 Home Medications Medication Instructions Recorded Confirmed Type atenolol 100 mg PO QAM 10/01/21 11/22/21 History hydrochlorothiazide 25 mg PO DAILY 10/01/21 11/22/21 History lisinopril 40 mg PO DAILY 10/01/21 11/22/21 History omeprazole 40 mg PO DAILY 10/01/21 11/22/21 History simvastatin 40 mg PO HS 10/01/21 11/22/21 History tamsulosin 0.8 mg PO QAM 10/01/21 11/22/21 History celecoxib [Celebrex] 200 mg PO DAILY #9 cap 10/16/21 11/22/21 Rx Patient hx anesthesia problems: none Family hx anesthesia problems: none Results Review: All pre-operative results and documents have been reviewed as part of the pre-operative evaluation. FORMERLY [facility], [facility] Past Medical History Medical History Arthritis Gastroesophageal reflux disease Hyperlipidemia Hypertension Obesity Prostate CA Surgical History Surgical History History of bilateral cataract extraction History of laparoscopic cholecystectomy (11/22/11) History of lumbar surgery (2018) History of right hip replacement (10/15/21) Family History Family History Sibling Family history of kidney disease Father Family history of diabetes mellitus in first degree relative Other Hypertension Social History Social History Social History: Surrogate decision maker: Anel Cintron, . Code status: Full code. Smoking status: Never smoker Alcohol intake: never Alcohol use details: Social alcohol use in moderation. Substance use: never Substance use type: does not use Living arrangements: with family Additional living arrangements comments: The patient lives with his in [place]. Additional occupation/education comments: Retired. Spiritual care concerns: No Anes - Eval Final PreProcedure Day of Procedure 12/07/21 08:41 Patient weight: overweight Heart: regular rate and rhythm Lungs: clear to auscultation Airway: Mallampati scale class II Neurological: alert and oriented Last oral intake: >/= 8 hours ASA classification: III Emergent: no Anesthetic plan: proceed Anesthesia type and monitoring: general GIVS and standard monitoring Results Review: All pre-operative results and documents have been reviewed as part of the pre-operative evaluation. Informed Consent: The patient's anesthetic plan and its attendant risks and benefits were discussed with the patient/family/POA. Questions were solicited and answers provided to the satisfaction of the patient/family/POA.
[2021-12-07] MEDS: LACTATED RINGERS 1,000 ML 150 ML IV CONT (08:44)
[2021-12-07] MEDS: AMPICILLIN 2 GM/NS 100 ML 2 GM/100 ML BAG IVPB (08:45)
--- NOTE | 2021-12-07 08:46 | PM.HPGS ---
History of Present Illness History of Present Illness Consent: Risks, benefits, and alternatives have been discussed and questions answered. Patient agrees to proceed with procedure. Chief complaint: neoplasm screening Narrative: Kaiser Cintron is a 76 year old male referred for colon cancer screening Review of Systems Review of Systems: All systems reviewed & are unremarkable except as noted in HPI and below PMFSH Past Medical History Medical History Arthritis Gastroesophageal reflux disease Hyperlipidemia Hypertension Obesity Prostate CA Surgical History Surgical History History of bilateral cataract extraction History of laparoscopic cholecystectomy (11/22/11) History of lumbar surgery (2018) History of right hip replacement (10/15/21) Family History Family History Sibling Family history of kidney disease Father Family history of diabetes mellitus in first degree relative Other Hypertension Social History Social History Social History: Surrogate decision maker: Anel Cintron, . Code status: Full code. Smoking status: Never smoker Alcohol intake: never Alcohol use details: Social alcohol use in moderation. Substance use: never Substance use type: does not use Living arrangements: with family Additional living arrangements comments: The patient lives with his in [place]. Additional occupation/education comments: Retired. Spiritual care concerns: No Meds Home Medications and Allergies Home Medications Medication Instructions Recorded Confirmed Type atenolol 100 mg PO QAM 10/01/21 11/22/21 History hydrochlorothiazide 25 mg PO DAILY 10/01/21 11/22/21 History lisinopril 40 mg PO DAILY 10/01/21 11/22/21 History omeprazole 40 mg PO DAILY 10/01/21 11/22/21 History simvastatin 40 mg PO HS 10/01/21 11/22/21 History tamsulosin 0.8 mg PO QAM 10/01/21 11/22/21 History celecoxib [Celebrex] 200 mg PO DAILY #9 cap 10/16/21 11/22/21 Rx Allergies Allergy/AdvReac Type Severity Reaction Status Date / Time No Known Allergies Allergy Verified 12/07/21 08:28 Vital Signs Vital Signs - 24 hr 12/07/21 08:20 Temperature 36.6 C Pulse Rate 74 Respiratory Rate 18 Blood Pressure 149/63 H Pulse Oximetry 100 Exam Resp: Auscultation: clear to auscultation bilaterally Cardio: Rate: regular rate Rhythm: regular rhythm GI: GI Palp: Yes Soft to palpation and No Tenderness to palpation present (GI) Assessment and Plan Assessment and plan (1) Colon cancer screening: Code(s): Z12.11 - Encounter for screening for malignant neoplasm of colon Status: Acute Assessment and Plan: Colonoscopy with possible biopsy or polypectomy or cautery or injection of substances.
[2021-12-07 09:37] VITALS: BP 110/56; PULSE 72; RESP 17; O2SAT 94
[2021-12-07 09:47] VITALS: BP 93/54; PULSE 68; RESP 18; O2SAT 97
[2021-12-07 09:57] VITALS: BP 129/71; PULSE 70; RESP 16; O2SAT 99
== END 2021-12-07 10:15 | disposition home or self-care (01) ==
PROVIDERS: PCP Internal Medicine; Visit Provider Internal Medicine Gastroenterology
PROC: 0DJD8ZZ Inspection of Lower Intestinal Tract, Via Natural or Artificial Opening Endoscopic (ICD-10-PCS; CPT 45378; principal; 2021-12-07 10:00)
DX: Z12.11 Encounter for screening for malignant neoplasm of colon (principal); K63.5 Polyp of colon; K57.30 Diverticulosis of large intestine without perforation or abscess without bleeding; I10 Essential (primary) hypertension; E78.5 Hyperlipidemia, unspecified; K21.9 Gastro-esophageal reflux disease without esophagitis; Z85.46 Personal history of malignant neoplasm of prostate
CPT/HCPCS: 45380; 88305; J0290; J2704; J7120

== ENCOUNTER 2024-06-04 14:57 | Emergency (ER) | payer MEDICARE, SELFPAY ==
[2024-06-04 14:58] VITALS: BP 138/55; PULSE 69; RESP 20; TEMP 36.3; O2SAT 97
[2024-06-04 15:03] LABS: Glucose Point of Care 95 mg/dl (65-105)
[2024-06-04 19:10] VITALS: BP 117/54; PULSE 64; RESP 20; TEMP 36.3; O2SAT 95
[2024-06-04 20:41] VITALS: PULSE 66; RESP 23; O2SAT 97
--- NOTE | 2024-06-04 20:42 | ED.GENADULT ---
HPI - General Adult General Chief complaint: Unspecified Stated complaint: hot, gets dizzy and then nauseous Time Seen by Provider: 06/04/24 20:27 Source: patient Mode of arrival: ambulatory Limitations: no limitations History of Present Illness HPI narrative: this is a 78-year-old male With PMH of GERD, HTN, HLD, prostate cancer who presents to the ED with chief complaint of elevated blood sugar this morning shortly after eating some Frosted flakes. Patient reports that his fingerstick blood glucose was over 200. States at that time use was nausea, emesis lightheadedness that lasted for about 30 minutes and resolved on its own. He has been told by his doctor to watch his blood sugars but does not have diabetes diagnosis. Denies associated chest pain, shortness of breath, cough, recent illness, fevers, chills, abdominal pain, vomiting, diarrhea. Denies syncope, numbness, weakness, speech change or vision change Related Data Home Medications Medication Instructions Recorded Confirmed atenolol 100 mg tablet 100 mg PO QAM 10/01/21 11/22/21 hydrochlorothiazide 25 mg tablet 25 mg PO DAILY 10/01/21 11/22/21 lisinopril 40 mg tablet 40 mg PO DAILY 10/01/21 11/22/21 omeprazole 40 mg capsule,delayed 40 mg PO DAILY 10/01/21 11/22/21 release simvastatin 40 mg tablet 40 mg PO HS 10/01/21 11/22/21 tamsulosin 0.4 mg capsule 0.8 mg PO QAM 10/01/21 11/22/21 Allergies Allergy/AdvReac Type Severity Reaction Status Date / Time No Known Allergies Allergy Verified 06/04/24 21:59 Review of Systems Review of Systems: All systems as dictated in HPI COUNTS INCLUDE 234 BEDS AT THE [facility] Past Medical History Medical History Arthritis Gastroesophageal reflux disease Hyperlipidemia Hypertension Obesity Prostate CA Surgical History Surgical History History of bilateral cataract extraction History of laparoscopic cholecystectomy (11/22/11) History of lumbar surgery (2018) History of right hip replacement (10/15/21) Family History Family History Sibling Family history of kidney disease Father Family history of diabetes mellitus in first degree relative Other Hypertension Social History Social History Social History: Surrogate decision maker: Anel Cintron, . Code status: Full code. Smoking status: Never smoker Alcohol intake: never Alcohol use details: Social alcohol use in moderation. Substance use: never Substance use type: does not use Living arrangements: with family Additional living arrangements comments: The patient lives with his in [place]. Additional occupation/education comments: Retired. Spiritual care concerns: No Exam Narrative: GENERAL: Well-appearing, well-nourished, and in no acute distress. HEAD: Normocephalic, atraumatic. EYES: PERRLA and EOMI. ENT: Nares clear, no rhinorrhea or epistaxis. Mucous membranes moist. Oropharynx without tonsillar hypertrophy exudate or other lesions. NECK: Supple. No adenopathy or masses. CHEST: No respiratory distress. Clear to auscultation. No wheezes rales or rhonchi HEART: Regular rate and rhythm. No murmur heard. Normal peripheral pulses. ABDOMEN: Soft, nontender, nondistended, normal active bowel sounds. MSK: Normal range of motion. No edema. SKIN: Warm, dry, no rash. NEURO: Alert and oriented x4. No focal deficits. PSYCH: Normal mood and affect. Course Vital Signs Vital signs: Vital Signs Temperature 97.3 F L 06/04/24 14:58 Pulse Rate 69 06/04/24 14:58 Respiratory Rate 20 06/04/24 14:58 Blood Pressure 138/55 L 06/04/24 14:58 Pulse Oximetry 97 06/04/24 14:58 Oxygen Delivery Room Air 06/04/24 14:58 Temperature 97.4 F L 06/04/24 19:10 Pulse Rate 66 06/04/24 21:59 Respiratory Rate 14 06/04/24
[2024-06-04 20:45] VITALS: PULSE 67; RESP 9
--- NOTE | 2024-06-04 20:45 | ECG_ITS ---
Test Date: 2024-06-04 20:53:15 Measurements Intervals [place] Rate: 67 P: 0 MD: 0 QRS: 16 QRSD: 97 T: 58 QT: 399 QTc: 423 Interpretive Statements SINUS RHYTHM WITH FIRST-DEGREE AV BLOCK ABNORMAL ELECTROCARDIOGRAM No previous ECG available for comparison Electronically Signed On 06-05-2024 09:29:54 CDT by Gil Cifuentes M.D.
[2024-06-04 21:00] VITALS: BP 115/58; PULSE 67; RESP 6
[2024-06-04 21:58] LABS: Basophils Absolute Auto 0.1 K/mm3 (0.0-0.1); Basophils Percent Auto 0.7 % (0.2-1.2); Eosinophils Absolute Auto 0.1 K/mm3 (0-0.3); Eosinophils Percent Auto 1.3 % (0-4.4); Hematocrit 47.9 % (42.0-52.0); Hemoglobin 16.5 g/dL (14.0-18.0); Immature Granulocyte Absolute 0.05 K/mm3 (0.00-0.031); Immature Granulocyte Percent A 0.5 % (0-0.5); Lymphocytes Absolute Auto 1.39 K/mm3 (0.9-3.2); Lymphocytes Percent Auto 15.2 % (18.3-44.2); Mean Corpuscular HGB Conc 34.4 g/dl (32-36); Mean Corpuscular Hemoglobin 31.7 pg (26-34); Mean Corpuscular Volume 91.9 fl (80-100); Mean Platelet Volume 9.9 fl (7.4-10.4); Monocytes Percent Auto 10.4 % (2.6-8.5); Neutrophils Absolute Auto 6.6 K/mm3 (1.3-6.7); Neutrophils Percent Auto 71.9 % (45.5-73.1); Platelet Count Result 231 k/mm3 (150-375); Red Blood Count 5.21 M/mm3 (4.6-6.20); Red Cell Distribution Width 13.5 % (11.5-14.5); White Blood Count 9.2 K/mm3 (4.5-10.0)
[2024-06-04 21:59] VITALS: BP 117/53; PULSE 66; RESP 14; O2SAT 97
[2024-06-04 22:09] LABS: Alanine Aminotransferase 18 U/L (6-50); Albumin Level 4.2 g/dL (3.5-5.1); Alkaline Phosphatase 58 U/L (38-126); Anion Gap 11 mmol/L (4-12); Aspartate Amino Transferase 27 U/L (17-59); Bilirubin,Total 0.8 mg/dL (0.2-1.3); Blood Urea Nitrogen 24 mg/dL (9-20); Calcium 8.8 mg/dL (8.4-10.2); Carbon Dioxide 26 mmol/L (22-30); Chloride 100 mmol/L (98-107); Estimated CRCL calculation 53 ml/min; Estimated Glomerular Filt Rate 58; Glucose 95 mg/dL (65-110); Lipase 83 U/L (23-300); Potassium 3.6 mmol/L (3.4-5.0); Sodium 137 mmol/L (137-145)
[2024-06-04 22:21] LABS: Troponin I < 0.012 ng/mL (0.000-0.034)
[2024-06-04 22:43] LABS: Add Urine Microscopic? YES; Appearance Urine Cloudy (Clear); Bacteria Urine None Seen /hpf; Bilirubin Urine Negative (Negative); Blood Urine Negative (Negative); Color Urine Yellow (Yellow); Glucose Urine UA Negative (Negative); Ketones Urine Trace mg/dL (Negative); Leukocyte Esterase Ur Negative LEU/UL (Negative); Nitrate Urine Negative (Negative); Protein Urine Negative (Negative); RBC Urine 0-2 /hpf (0-2); Specific Grav Ur 1.015 (1.001-1.035); Squamous Epithelial Cell Urine None Seen /hpf (Few); Urobilinogen Urine 0.2 mg/dL (<2.0); WBC Urine 0-5 /hpf (0-3)
== END 2024-06-04 23:14 | disposition home or self-care (01) ==
PROVIDERS: Emergency Provider Physician Assistant; PCP Internal Medicine
DX: Z04.89 Encounter for examination and observation for other specified reasons (principal); I10 Essential (primary) hypertension; E78.5 Hyperlipidemia, unspecified; E66.9 Obesity, unspecified; Z68.32 Body mass index [BMI] 32.0-32.9, adult; M19.90 Unspecified osteoarthritis, unspecified site; K21.9 Gastro-esophageal reflux disease without esophagitis; Z96.641 Presence of right artificial hip joint; Z85.46 Personal history of malignant neoplasm of prostate; Z98.42 Cataract extraction status, left eye; Z98.41 Cataract extraction status, right eye; Z90.49 Acquired absence of other specified parts of digestive tract; I44.0 Atrioventricular block, first degree
CPT/HCPCS: 36415; 80053; 81001; 82948; 83690; 84484; 85025; 93005; 99284

== ENCOUNTER 2024-12-09 19:08 | Emergency (ER) | payer MEDICARE, SELFPAY ==
[2024-12-09] VITALS (10 sets, daily range): BP systolic 91–122; BP diastolic 62–66; PULSE 63–78; RESP 12–16; TEMP 36.3; O2SAT 96–100
--- NOTE | ~2024-12-09 | XR_ITS ---
EXAMINATION: XR chest 2V DATE: 12/09/2024 19:43 INDICATION: Syncope TECHNIQUE: frontal and lateral views of the chest were obtained. COMPARISON: None FINDINGS: The lungs are clear with no focal airspace opacities, pulmonary edema, pleural effusion or pneumothor ax. The cardiomediastinal silhouette is normal. Mild thoracic spondylosis with bridging osteophytes a t multiple levels consistent with diffuse idiopathic skeletal hyperostosis (DISH). IMPRESSION: 1. No acute cardiopulmonary disease. Reviewed, dictated and finalized at location A. [employer]
--- OUTSIDE RECORDS SUMMARY | 2024-12-09 19:10 | XMS_ITS | Referral Summary ---
Author Organization [facility] [place] Address [address] [place] [address] Care Team Providers Care Dip Unit Operator Name Role Phone Andrés Brown MD Primary Care Provider [phone] Allergies No known active allergies Medications tamsulosin (FLOMAX) 0.4 mg extended release capsule tamsulosin 0.4 mg capsule TAKE 2 CAPSULES BY MOUTH EVERY DAY Active omeprazole (PriLOSEC) 40 mg capsule Take by mouth daily 1 9 Active lisinopril (PRINIVIL,ZESTR IL) 40 mg tablet Take 40 mg by mouth daily 0 9 Active hydroCHLOROthia zide (HYDRODIURIL) 25 mg tablet Take 25 mg by mouth daily 1 9 Active atenolol (TENORMIN) 50 mg tablet Take 100 mg by mouth daily 1 9 Active ciprofloxacin (CIPRO) 500 mg tabletIndicatio ns:Elevated PSA Take 1 by mouth night before before procedure, the morning of procedure, and the evening of procedure. 3 tablet 0 Active Active Problems Problem Noted Date Diagnosed Date Prostate cancer 01/18/2022 Elevated PSA 07/07/2020 Overview (07/07/2020): Added automatically from request for surgery [id number] Social History Tobacco Use Types Packs/Day Years Used Date Smoking Tobacco: Never Smokeless Tobacco: Never Alcohol Use Standard Drinks/Week Comments Never 0 (1 standard drink = 0.6 oz pur e alcohol) AUDIT-C Answer Date Recorded Frequency of Alcohol Consumption Never 05/07/2019 Average Number of Drinks Not on file 019 Frequency of Binge Drinking Not on file 04/19 Sex and Gender Information Value Date Recorded Sex Assigned at Not on file 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 Gender Identity Not on file Sexual Orientation Not on file Last Filed Vital Signs Vital Sign Reading Time Taken Comments Blood Pressure 162/65 07/27/2020 12:33 PM CDT Pulse 56 07/27/2020 12:33 PM CDT Temperature 36.2 C (97.2 F) 01/22/2021 8:27 AM CDT Respiratory Rate 18 07/27/2020 12:33 PM CDT Oxygen Saturation 98% 07/27/2020 12:33 PM CDT Inhaled Oxygen Concentration - - Weight 100 kg (220 lb 7.4 oz) 07/27/2020 10:03 A M CDT Height 177.8 cm (5' 10 ) 07/27/2020 10:03 AM CDT Body Mass Index 31.63 07/27/2020 10:03 AM CDT Plan of Treatment Not on file Medical Devices Implanted Type Area Service Station Manager Device Identifier Shelf Expiration Date Model / Serial / Lot Lumbar Fusion-12/19/2016 Implanted:12/19 (Quantity not on file) Spine Lumbar Insurance MEDICARE [facility] MEDICARE [employer] [facility] Care Teams Dip Unit Operator Relationship Specialty Start Date End Date Andrés Brown MD PCP - General Internal Medicine 04/15/19
--- OUTSIDE RECORDS SUMMARY | 2024-12-09 19:11 | XMS_ITS | Data Portability ---
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 Plan of Treatment Reminders Order Date Submit Date Provider Last Modified By Organization Details Last Modified Time Details Appointments Any 15 2024 11:00A M Julia Brown MD Not available Not available Not available Lab glycohemo globin, total, blood 2023 024 [facility] (Lab), [address] [place], [address], 06/10/2024 20:27:24 BMP, serum or plasma 2023 024 [facility] (Lab), [address] [place], [address], 06/10/2024 20:23:11 unlisted lab - CBC study [address] (Lab), [address] [place], [address], 05/17/2024 08:16:52 urinalysi s, complete [address] (Lab), [address] [place], [address], 05/17/2024 08:16:59 uric acid, serum or plasma 2023 024 [facility] (Lab), [address] [place], [address], 05/10/2024 20:53:56 glycohemo globin, total, blood 2023 024 [facility] (Lab), [address] [place], [address], 05/10/2024 21:38:26 CMP, serum or plasma 2023 024 [facility] (Lab), [address] [place], [address], 05/10/2024 20:53:51 lipid panel, serum 2023 024 [facility] (Lab), [address] [place], [address], 05/10/2024 20:53:54 Referral None recorded. Procedures None recorded. Surgeries None recorded. Imaging None recorded. Medication Orders None recorded. Patient TargetsNo targets recorded. Patient Instructions Encounter Date Encounter Id Patient Instructions Last Modified By Organization Details Last Modified Time 09/09/2024 [id number] dementia rating scale-2* Not available 09/09/2024 17:46:34 alcohol misuse* Not available 09/09/2024 17:46:35 depression screening* Not available 09/09/2024 17:46:34 multi-dimensiona health assessment questionnaire* Not available 09/09/2024 17:46:35 advance care planning: care instructions Not available 09/09/2024 17:46:35 advance directiv es: care instructions Not available 09/09/2024 17:46:35 [place] Advance Directives Not available 09/09/2024 17:46:34 Personalized a lt Plan and Screening Recommendations Advance Directives - Do you have one? No You have indicated that you are capable of preparing your advance care directive Advance Directives - Do we have your advance directive on file in your health record? No, please bring in a copy at your earliest convenience Primary Prevention/Interven tion (prevents or decreases the chance of common diseases from occurring) Smoking Risk: Non Smoker Alcohol Misuse Screening: Negative Weight: Appropriate Overwei ght continue your current weight loss efforts Physical activity: Need more exercise/physical activity Nutrition: Good Refer to attached handout Heart-Healthy Diet: After Your Visit Fall Risk (screened today): Low Vaccines Pneumococcal: Ordered Recommended today Recommended today, but you have declined No further needed Influenza: Chronic Disease Risks Stroke: Low Risk Intermediate Risk I have no recommendations Act megan diagnosis, Continue current treatment plan Heart Attack: Low risk Intermediate Risk I have no recommendations Act megan diagnosis, Continue current treatment plan Clogging of the Arteries: Low risk Intermediate Risk I have no recommendations Act megan diagnosis, Continue current treatment plan Diabetes: Low Risk I have no recommendations Secondary Prevention/Interven tion (detects treatable diseases before they may cause symptoms, disability, or ) Prostate Cancer Screening: Colon Cancer Screening: Colonoscopy No screening necessary Date Screening Last Performed: 2012 Eye Disease Screening: No Eye exam necessary Dementia Risk: Low I have no recommendations Depression Screening: Negative [id number] Not available 09/09/2024 14:10:49 Reason for Referral None Reported. Results Created Date Observation Date Name Description Value Unit Range Abnormal Flag Note LastModifiedBy Organization Detail LastModifiedTime 05/10/20 24 05/10/2024 CBC/C OMPLE TE BLD COUNT W/DIF F white blood cells 7.7 x10'3 /uL 4.2-10 .8 Not Available [facility] (Lab) [address] [place], [address], 05/10/2024 20:38:48 05/10/20 24 05/10/2024 CBC/C OMPLE TE BLD COUNT W/DIF F red blood cells 5.25 x10'6 /uL 4.10-5 .80 Not Available [facility] (Lab) [address] [place], [address], 05/10/2024 20:38:48 05/10/20 24 05/10/2024 CBC/C OMPLE TE BLD COUNT W/DIF F hemoglobin 16.6 g/dL 13.2-1 7.0 Not Available [facility] (Lab) [address] [place], [address], 05/10/2024 20:38:48 05/10/20 24 05/10/2024 CBC/C OMPLE TE BLD COUNT W/DIF F hematocrit 50.9 % 39.3-5 0.0 high Not Available [facility] (Lab) [address] [place], [address], 05/10/2024 20:38:48 05/10/20 24 05/10/2024 CBC/C OMPLE TE BLD COUNT W/DIF F mean red cell volume 97.0 fL 80.0-9 7.0 Not Available [facility] (Lab) [address] [place], [address], 05/10/2024 20:38:48 05/10/20 24 05/10/2024 CBC/C OMPLE TE BLD COUNT W/DIF F mean red cell hemoglobin 31.6 pg 27.0-3 3.0 Not Available [facility] (Lab) [address] [place], [address], 05/10/2024 20:38:48 05/10/20 24 05/10/2024 CBC/C OMPLE TE BLD COUNT W/DIF F mean RBC HGB concentratio n 32.6 g/dL 31.0-3 6.0 Not Available [facility] (Lab) [address] [place], [address], 05/10/2024 20:38:48 05/10/20 24 05/10/2024 CBC/C OMPLE TE BLD COUNT W/DIF F red cell distribution width 13.8 % 11.8-1 5.5 Not Available [facility] (Lab) [address] [place], [address], 05/10/2024 20:38:48 05/10/20 24 05/10/2024 CBC/C OMPLE TE BLD COUNT W/DIF F platelets 283 x10'3 /uL 150-40 0 Not Available [facility] (Lab) [address] [place], [address], 05/10/2024 20:38:48 05/10/20 24 05/10/2024 CBC/C OMPLE TE BLD COUNT W/DIF F mean platelet volume 11.0 fL 9.0-12 .4 Not Available [facility] (Lab) [address] [place], [address], 05/10/2024 20:38:48 05/10/20 24 05/10/2024 CBC/C OMPLE TE BLD COUNT W/DIF F neutrophils 71.8 % 39.0-7 2.0 Not Available [facility] (Lab) [address] [place], [address], 05/10/2024 20:38:48 05/10/20 24 05/10/2024 CBC/C OMPLE TE BLD COUNT W/DIF F lymphocytes 15.0 % 16.0-4 7.0 low Not Available [facility] (Lab) [address] [place], [address], 05/10/2024 20:38:48 05/10/20 24 05/10/2024 CBC/C OMPLE TE BLD COUNT W/DIF F monocytes 9.6 % 5.0-12 .0 Not Available [facility] (Lab) [address] [place], [address], 05/10/2024 20:38:48 05/10/20 24 05/10/2024 CBC/C OMPLE TE BLD COUNT W/DIF F eosinophils 2.1 % 1.0-7. 0 Not Available [facility] (Lab) [address] [place], [address], 05/10/2024 20:38:48 05/10/20 24 05/10/2024 CBC/C OMPLE TE BLD COUNT W/DIF F basophils 1.0 % 0.0-2. 0 Not Available [facility] (Lab) [address] [place], [address], 05/10/2024 20:38:48 05/10/20 24 05/10/2024 CBC/C OMPLE TE BLD COUNT W/DIF F immature granulocytes 0.5 % 0.00-0 .50 Not Available [facility] (Lab) [address] [place], [address], 05/10/2024 20:38:48 05/10/20 24 05/10/2024 CBC/C OMPLE TE BLD COUNT W/DIF F neutrophils, absolute count 5.56 x10'3 /uL 1.5-8. 0 Not Available [facility] (Lab) [address] [place], [address], 05/10/2024 20:38:48 05/10/20 24 05/10/2024 CBC/C OMPLE TE BLD COUNT W/DIF F lymphocytes, absolute count 1.16 x10'3 /uL 1.07-3 .43 Not Available [facility] (Lab) [address] [place], [address], 05/10/2024 20:38:48 05/10/20 24 05/10/2024 CBC/C OMPLE TE BLD COUNT W/DIF F monocytes, absolute count 0.74 x10'3 /uL 0.29-0 .99 Not Available [facility] (Lab) [address] [place], [address], 05/10/2024 20:38:48 05/10/20 24 05/10/2024 CBC/C OMPLE TE BLD COUNT W/DIF F eosinophils, absolute count 0.16 x10'3 /uL 0.02-0 .53 Not Available [facility] (Lab) [address] [place], [address], 05/10/2024 20:38:48 05/10/20 24 05/10/2024 CBC/C OMPLE TE BLD COUNT W/DIF F basophils, absolute count 0.08 x10'3 /uL 0.01-0 .08 Not Available [facility] (Lab) [address] [place], [address], 05/10/2024 20:38:48 05/10/20 24 05/10/2024 CBC/C OMPLE TE BLD COUNT W/DIF F immature granulocytes ,absolute 0.04 x10'3 /uL 0.00-0 .05 Not Available [facility] (Lab) [address] [place], [address], 05/10/2024 20:38:48 05/10/20 24 05/10/2024 CBC/C OMPLE TE BLD COUNT W/DIF F nucleated red blood cells 0.0 % -0 Not Available [facility] (Lab) [address] [place], [address], 05/10/2024 20:38:48 05/10/20 24 05/10/2024 CBC/C OMPLE TE BLD COUNT W/DIF F NRBC# 0.00 x10'3 /uL Not Available [facility] (Lab) [address] [place], [address], 05/10/2024 20:38:48 05/10/20 24 05/10/2024 URINA LYSIS COMPL ETE, IRIS color LIGHT- YELLOW Not Available [facility] (Lab) [address] [place], [address], 05/10/2024 20:41:35 05/10/20 24 05/10/2024 URINA LYSIS COMPL ETE, IRIS appear CLEAR Not Available [facility] (Lab) [address] [place], [address], 05/10/2024 20:41:35 05/10/20 24 05/10/2024 URINA LYSIS COMPL ETE, IRIS specific gravity 1.013 1.001- 1.030 Not Available [facility] (Lab) [address] [place], [address], 05/10/2024 20:41:35 05/10/20 24 05/10/2024 URINA LYSIS COMPL ETE, IRIS pH 6.5 pH_un its 5.0-9. 0 Not Available [facility] (Lab) [address] [place], [address], 05/10/2024 20:41:35 05/10/20 24 05/10/2024 URINA LYSIS COMPL ETE, IRIS leukocytes NEGATI VE karissa/u L negati ve- Not Available [facility] (Lab) [address] [place], [address], 05/10/2024 20:41:35 05/10/20 24 05/10/2024 URINA LYSIS COMPL ETE, IRIS nitrite NEGATI VE negati ve- Not Available [facility] (Lab) [address] [place], [address], 05/10/2024 20:41:35 05/10/20 24 05/10/2024 URINA LYSIS COMPL ETE, IRIS protein NEGATI VE mg/dL negati ve- Not Available [facility] (Lab) [address] [place], [address], 05/10/2024 20:41:35 05/10/20 24 05/10/2024 URINA LYSIS COMPL ETE, IRIS glucose NORMAL mg/dL normal - Not Available [facility] (Lab) [address] [place], [address], 05/10/2024 20:41:35 05/10/20 24 05/10/2024 URINA LYSIS COMPL ETE, IRIS ketones NEGATI VE mg/dL negati ve- Not Available [facility] (Lab) [address] [place], [address], 05/10/2024 20:41:35 05/10/20 24 05/10/2024 URINA LYSIS COMPL ETE, IRIS urobilinogen NORMAL mg/dL normal - Not Available [facility] (Lab) [address] [place], [address], 05/10/2024 20:41:35 05/10/20 24 05/10/2024 URINA LYSIS COMPL ETE, IRIS bilirubin NEGATI VE mg/dL negati ve- Not Available [facility] (Lab) [address] [place], [address], 05/10/2024 20:41:35 05/10/20 24 05/10/2024 URINA LYSIS COMPL ETE, IRIS blood NEGATI VE mg/dL negati ve- Not Available [facility] (Lab) [address] [place], [address], 05/10/2024 20:41:35 05/10/20 24 05/10/2024 URINA LYSIS COMPL ETE, IRIS white blood cells 0-8 /i??h pfi?? 0-8 Not Available [facility] (Lab) [address] [place], [address], 05/10/2024 20:41:35 05/10/20 24 05/10/2024 URINA LYSIS COMPL ETE, IRIS red blood cells 0-4 /i??h pfi?? 0-4 Not Available [facility] (Lab) [address] [place], [address], 05/10/2024 20:41:35 05/10/20 24 05/10/2024 URINA LYSIS COMPL ETE, IRIS bacteria NONE Not Available [facility] (Lab) [address] [place], [address], 05/10/2024 20:41:35 05/10/20 24 05/10/2024 URINA LYSIS COMPL ETE, IRIS mucous OCCASI ONAL /i??l pfi?? abnormal Not Available [facility] (Lab) [address] [place], [address], 05/10/2024 20:41:35 05/10/20 24 05/10/2024 URINA LYSIS COMPL ETE, IRIS squamous epithelial OCCASI ONAL /i??l pfi?? abnormal Not Available [facility] (Lab) [address] [place], [address], 05/10/2024 20:41:35 05/10/20 24 05/10/2024 COMPR EHENS MEGAN METAB OLIC PANEL sodium 138 mmol/ L 137-14 5 Not Available [facility] (Lab) [address] [place], [address], 05/10/2024 20:53:51 05/10/20 24 05/10/2024 COMPR EHENS MEGAN METAB OLIC PANEL potassium 4.0 mmol/ L 3.5-5. 1 Not Available [facility] (Lab) [address] [place], [address], 05/10/2024 20:53:51 05/10/20 24 05/10/2024 COMPR EHENS MEGAN METAB OLIC PANEL chloride 102 mmol/ L 98-107 Not Available [facility] (Lab) [address] [place], [address], 05/10/2024 20:53:51 05/10/20 24 05/10/2024 COMPR EHENS MEGAN METAB OLIC PANEL carbon dioxide 29 mmol/ L 22-30 Not Available [facility] (Lab) [address] [place], [address], 05/10/2024 20:53:51 05/10/20 24 05/10/2024 COMPR EHENS MEGAN METAB OLIC PANEL anion gap 11.0 mmol/ L 14-22 low Not Available [facility] (Lab) [address] [place], [address], 05/10/2024 20:53:51 05/10/20 24 05/10/2024 COMPR EHENS MEGAN METAB OLIC PANEL glucose 97 mg/dL 70-99 Not Available [facility] (Lab) [address] [place], [address], 05/10/2024 20:53:51 05/10/20 24 05/10/2024 COMPR EHENS MEGAN METAB OLIC PANEL BUN 20 mg/dL 8-19 high Not Available [facility] (Lab) [address] [place], [address], 05/10/2024 20:53:51 05/10/20 24 05/10/2024 COMPR EHENS MEGAN METAB OLIC PANEL creatinine 1.08 mg/dL 0.66-1 .25 Not Available [facility] (Lab) [address] [place], [address], 05/10/2024 20:53:51 05/10/20 24 05/10/2024 COMPR EHENS MEGAN METAB OLIC PANEL GFR >60 Refer ence Range : [place] ge GFR Healt hy Adult : >60 mL/mi n/1.7 3 m2 Chron ic Kidne y Disea se: 15-60 mL/mi n/1.7 3 m2 Kidne y Failu re: <15/m L/min /1.73 m2 www.n iddk. nih.g ov The MDRD study equat ion has not been valid ated in child zaira <18 years of age; pregn ant women ; the elder ly >85 years of age; or in some racia l or ethni c subgr oups, such as Hispa nics. Outsi de the valid ated freddie eters , estim ated GFR is less accur ate, requi ring clini kemar judgm ent on a case- by-ca se basis . Clini kemar inter preta tion for other races and ages must be made by the clini dorothy. The MDRD study equat ion has not been valid ated for the evalu ation of serum creat inine relat ed to nutri patricia l statu s or medic ation usage . For perso ns <18 years of age, a pedia tric GFR calcu lator is avail able on the [facility] websi te: https ://agapito he.ritchie kidd/ivone suárezal s/kdo qi/gf r_cal culat or Not Available [facility] (Lab) [address] [place], [address], 05/10/2024 20:53:51 05/10/20 24 05/10/2024 COMPR EHENS MEGAN METAB OLIC PANEL alkaline phosphatase 65 U/L 38-126 Not Available [facility] (Lab) [address] [place], [address], 05/10/2024 20:53:51 05/10/20 24 05/10/2024 COMPR EHENS MEGAN METAB OLIC PANEL alanine aminotransfe rase 21 U/L 0-50 Not Available [facility] (Lab) [address] [place], [address], 05/10/2024 20:53:51 05/10/20 24 05/10/2024 COMPR EHENS MEGAN METAB OLIC PANEL aspartate aminotransfe rase 24 U/L 15-46 Not Available [facility] (Lab) [address] [place], [address], 05/10/2024 20:53:51 05/10/20 24 05/10/2024 COMPR EHENS MEGAN METAB OLIC PANEL bilirubin, total 0.60 mg/dL 0.20-1 .30 Not Available [facility] (Lab) [address] [place], [address], 05/10/2024 20:53:51 05/10/20 24 05/10/2024 COMPR EHENS MEGAN METAB OLIC PANEL calcium 9.2 mg/dL 8.4-10 .2 Not Available [facility] (Lab) [address] [place], [address], 05/10/2024 20:53:51 05/10/20 24 05/10/2024 COMPR EHENS MEGAN METAB OLIC PANEL total protein 7.4 g/dL 6.3-8. 2 Not Available [facility] (Lab) [address] [place], [address], 05/10/2024 20:53:51 05/10/20 24 05/10/2024 COMPR EHENS MEGAN METAB OLIC PANEL albumin 4.4 g/dL 3.0-4. 4 Not Available [facility] (Lab) [address] [place], [address], 05/10/2024 20:53:51 05/10/20 24 05/10/2024 COMPR EHENS MEGAN METAB OLIC PANEL globulin 3.0 g/dL 2.6-4. 2 Not Available [facility] (Lab) [address] [place], [address], 05/10/2024 20:53:51 05/10/20 24 05/10/2024 COMPR EHENS MEGAN METAB OLIC PANEL A/G ratio 1.5 ratio 1.0-2. 0 Not Available [facility] (Lab) [address] [place], [address], 05/10/2024 20:53:51 05/10/20 24 05/10/2024 LIPID PANEL cholesterol 153 mg/dL 140-19 9 NIH JANAE NSUS RECOM MENDA TION FOR ZEE STERO L: ADULT CHILD LOW RISK: <200 <170 BORDE RLINE : <200- 239 ----- HIGH RISK: >240 >200 Not Available [facility] (Lab) [address] [place], [address], 05/10/2024 20:53:54 05/10/20 24 05/10/2024 LIPID PANEL triglyceride s 192 mg/dL 0-150 high NIH JAANE NSUS REPOR T RECOM MENDA TION FOR TRIGL YCERI TATYANA: ADULT CHILD LOW RISK: <150 ----- BODER LINE: 150-1 99 ----- HIGH RISK: >200 ----- Not Available [facility] (Lab) [address] [place], [address], 05/10/2024 20:53:54 05/10/20 24 05/10/2024 LIPID PANEL HDL cholesterol 34 mg/dL 40- low Not Available [facility] (Lab) [address] [place], [address], 05/10/2024 20:53:54 05/10/20 24 05/10/2024 LIPID PANEL LDL cholesterol, calculated 81 mg/dL 0-130 NIH JANAE NSUS REPOR T RECOM MENDA TIONS FOR LDL: ADULT CHILD LOW RISK <130 <110 (OPTI MAL LDL) <100 ----- JULIA RLINE : 130-1 59 ----- HIGH RISK: >160 >130 A TRIGL YCERI DE RESUL T >400 INVAL IDATE S THE CALCU LATIO N FOR LDL FRACT IONAT ION - THE LDL RESUL T WILL NOT BE REPOR PAT. Not Available [facility] (Lab) [address] [place], [address], 05/10/2024 20:53:54 05/10/20 24 05/10/2024 URIC ACID SERUM uric acid 6.4 mg/dL 3.5-8. 5 Not Available [facility] (Lab) [address] [place], [address], 05/10/2024 20:53:56 05/10/20 24 05/10/2024 HEMOG LOBIN A1C HA1C 5.7 % 4.0-6. 0 Diabe billy Scree angely Crite gunjan: <5.7% Consi stent with absen ce of diabe billy 5.7-6 .4% Consi stent with incre ased risk for diabe billy (pred iabet es) >OR=6 .5% Consi stent with diabe billy REFER ENCE: Diabe billy Care 2016, 39(Negron ppl.1 ):s13 -s22 Not Available [facility] (Lab) [address] [place], [address], 05/10/2024 21:38:26 06/10/20 24 06/10/2024 BASIC METAB OLIC PANEL sodium 136 mmol/ L 137-14 5 low Not Available [facility] (Lab) [address] [place], [address], 06/10/2024 20:23:11 06/10/20 24 06/10/2024 BASIC METAB OLIC PANEL potassium 4.3 mmol/ L 3.5-5. 1 Not Available [facility] (Lab) [address] [place], [address], 06/10/2024 20:23:11 06/10/20 24 06/10/2024 BASIC METAB OLIC PANEL chloride 104 mmol/ L 98-107 Not Available [facility] (Lab) [address] [place], [address], 06/10/2024 20:23:11 06/10/20 24 06/10/2024 BASIC METAB OLIC PANEL carbon dioxide 28 mmol/ L 22-30 Not Available [facility] (Lab) [address] [place], [address], 06/10/2024 20:23:11 06/10/20 24 06/10/2024 BASIC METAB OLIC PANEL anion gap 8.3 mmol/ L 14-22 low Not Available [facility] (Lab) [address] [place], [address], 06/10/2024 20:23:11 06/10/20 24 06/10/2024 BASIC METAB OLIC PANEL glucose 107 mg/dL 70-99 high Not Available [facility] (Lab) [address] [place], [address], 06/10/2024 20:23:11 06/10/20 24 06/10/2024 BASIC METAB OLIC PANEL BUN 20 mg/dL 8-19 high Not Available [facility] (Lab) [address] [place], [address], 06/10/2024 20:23:11 06/10/20 24 06/10/2024 BASIC METAB OLIC PANEL creatinine 1.14 mg/dL 0.66-1 .25 Not Available [facility] (Lab) [address] [place], [address], 06/10/2024 20:23:11 06/10/20 24 06/10/2024 BASIC METAB OLIC PANEL GFR >60 Refer ence Range : [place] ge GFR Healt hy Adult : >60 mL/mi n/1.7 3 m2 Chron ic Kidne y Disea se: 15-60 mL/mi n/1.7 3 m2 Kidne y Failu re: <15/m L/min /1.73 m2 www.n iddk. nih.g ov The MDRD study equat ion has not been valid ated in child zaira <18 years of age; pregn ant women ; the elder ly >85 years of age; or in some racia l or ethni c subgr oups, such as Hisdc nics. Outsi de the valid ated freddie eters , estim ated GFR is less accur ate, requi ring clini kemar judgm ent on a case- by-ca se basis . Clini kemar inter preta tion for other races and ages must be made by the clini dorothy. The MDRD study equat ion has not been valid ated for the evalu ation of serum creat inine relat ed to nutri patricia l statu s or medic ation usage . For perso ns <18 years of age, a pedia tric GFR calcu lator is avail able on the [facility] websi te: https ://agapito gay.razia he.o bernabe/pr ofess ional s/kdo qi/gf r_cal culat or Not Available [facility] (Lab) [address] [place], [address], 06/10/2024 20:23:11 06/10/20 24 06/10/2024 BASIC METAB OLIC PANEL calcium 9.2 mg/dL 8.4-10 .2 Not Available [facility] (Lab) [address] [place], [address], 06/10/2024 20:23:11 06/10/20 24 06/10/2024 HEMOG LOBIN A1C HA1C 5.7 % 4.0-6. 0 Diabe billy Scree angely Crite gunjan: <5.7% Consi stent with absen ce of diabe billy 5.7-6 .4% Consi stent with incre ased risk for diabe billy (pred iabet es) >OR=6 .5% Consi stent with diabe billy REFER ENCE: Diabe billy Care 2016, 39(Negron ppl.1 ):s13 -s22 Not Available [facility] (Lab) [address] [place], [address], 06/10/2024 20:27:24 Result Notes None recorded. Problems Name Problem SNOMED Code Status Onset Date Resolution Date Notes Provider Name and Address Organization Details Recorded Time Acute bronchiti s 17407155 Completed Not Available [facility] 3 02:55:21 Benign essential hypertens ion [id number] Completed 01/01/2023 JOSEPH Schuster, [place] - [facility] 3 09:42:08 Capsuliti s of metatarso phalangea l joint of left foot [id number] Completed 202108/29/2022 Not Available [facility] 3 02:55:21 Backache [id number] Completed Not Available [facility] 3 02:55:21 Localized , primary osteoarth ritis of the pelvic region and thigh 530518850 Active Not Available [facility] 3 17:12:49 Gastroeso phageal reflux disease 136687184 Active Not Available [facility] 3 17:12:49 Pure hyperchol esterolem ia 571645227 Completed Not Available [facility] 3 02:55:21 Wax in ear canal 549737595 Completed Not Available [facility] 3 02:55:21 Low back pain 636391119 Completed 201702/25/2018 Not Available [facility] 3 02:55:21 Knee pain Completed Not Available [facility] 3 02:55:21 Umbilical hernia 510973636 Active Not Available [facility] 3 17:12:49 Diverticu lar disease of colon 273951621 Active Not Available [facility] 3 17:12:49 Malignant tumor of prostate 153443400 Active 2019 Not Available [facility] 3 17:12:49 Obesity 913681385 Active Not Available [facility] 3 17:12:49 Superfici al white onychomyc osis 689131063 Completed 202108/29/2022 Not Available [facility] 3 02:55:22 Hip pain 16385874 Active 2020 Not Available [facility] 3 17:12:49 Upper respirato ry infection 34984340 Completed Not Available [facility] 3 02:55:22 Hyperlipi demia 51180180 Active Not Available [facility] 3 17:12:49 Essential hypertens ion 66924046 Active Not Available [facility] 3 17:12:49 Polyp of colon 13220936 Active 2021 Not Available [facility] 3 17:12:49 Urinary tract infectiou s disease 51981604 Completed Not Available [facility] 3 02:55:22 Hemorrhoi ds 32470365 Completed Not Available [facility] 3 02:55:22 Hyperglyc emia 72350937 Active Not Available [facility] 3 17:12:49 History of total hip arthropla sty 05778861985 6 Active 2021 Not Available [facility] 3 17:12:49 Gout 08170984 Active 2021 Not Available [facility] 3 17:12:49 Disorder of skin 09399925 Completed Not Available [facility] 3 02:55:23 Prostate specific antigen above reference range 709204926 Active 2022 Not Available [facility] 3 17:12:49 Tinnitus of right ear 51378072740 08 Completed 202201/30/2024 Jillian vyas, RMA null, [employer] 4 08:44:30 Impacted cerumen of bilateral ears 38184347411 89845 Completed 202201/30/2024 Julia Brown MD [address], [address], [place], [address] , [facility] 4 10:21:52 Impacted cerumen of bilateral ears 42939186153 42136 Active 2023 Julia Brown MD [address], [address], [place], [address] , [facility] 4 10:21:52 Dizziness 875968198 Active 2023 Julia Brown MD [address], [address], [place], [address] , [facility] 4 11:57:27 Problem Notes None recorded. Procedures Surgical History Date Name Laterality Status Provider Name and Address Organization Details Recorded Time 09/09/20 24 Medicare Wellness CPT Code, subsequent completed Xiomara Shirley RN [facility] [employer] 09/09/2024 12:51:14 05/05/20 23 Medicare Wellness CPT Code, subsequent completed Mariangel Bustos RN [facility] [employer] 05/05/2023 10:05:05 11/20/19 18 Back Surgery completed Not Available [facility] 12/18/2022 02:48:31 Cholecystectomy completed Not Available [facility] 12/18/2022 02:48:31 biopsy of prostate completed Not Available [facility] 12/18/2022 02:48:31 Imaging Results None recorded. Procedure Notes None recorded. Medical Equipment None Reported. Medications Name Sig Start Date Stop Date Status Note LastModified by Organization Details LastModified Time celecoxib 200 mg capsule 11/15 completed Not Available Not Available Not Available cyclobenz aprine 10 mg tablet Take 1 tablet 3 times a day by oral route. active GENERIC FOR FLEXERIL Not Available Not Available Not Available azithromy christoph 250 mg tablet Take 2 TABLET EVERY DAY by oral route for 1 day. then 1 tab a day for 4 days active Not Available Not Available No t Available ofloxacin 0.3 % eye drops INSTILL 1 DROP INTO AFFECTED EYE THREE TIMES A DAY DIRECTED TO BEGIN TWO DAYS PRIOR TO SURGERY 03/14 completed Not Available Not Available Not Available atenolol 100 mg tablet TAKE 1 TABLET BY MOUTH EVERY DAY active Not Available Not Available No t Available hydrocodo ne 5 mg-acetam inophen 325 mg tablet TK 1 T PO Q 4-6 H PRN P 07/07 completed Not Available Not Available Not Available acetamino phen 300 mg-codein e 30 mg tablet TK 1 T PO Q 6 H PRN 02/25 completed Not Available Not Available Not Available allopurin ol 100 mg tablet TAKE 1 TABLET BY MOUTH EVERY DAY WITH A MEAL 2024 active Not Available Not Available Not Avai lable ciproflox acin 500 mg tablet TAKE 1 TABLET BY MOUTH THE NIGHT BEFORE PROCEDUR E, MORNING OF PROCEDUR E AND EVENING OF PROCEDUR E active Not Available Not Available No t Available omeprazol e 40 mg capsule,d elayed release TAKE 1 CAPSULE BY MOUTH EVERY DAY 2024 active Not Available Not Available Not Avai lable tramadol 50 mg tablet Take 1 tablet 3 times a day by oral route as needed. active Not Available Not Available No t Available acetamino phen 500 mg tablet 12/13 completed Not Available Not Available Not Available simvastat in 40 mg tablet TAKE 1 TABLET BY MOUTH EVERY DAY active Not Available Not Available No t Available ketorolac 0.5 % eye drops INSTILL 1 DROP INTO THE OPERATIV E EYE 3 TIMES DAILY BEGINNIN G 2 DAYS BEFORE SURGERY 05/15 completed Not Available Not Available Not Available ciclopiro x 8 % topical solution APPLY TO THE AFFECTED AREA(S) toenails BY TOPICAL ROUTE ONCE DAILY PREFERAB LY AT BEDTIME OR 8 HOURS BEFORE WASHING active Not Available Not Available No t Available prednisol one acetate 1 % eye drops,suyapa pension DROP 1 DROP INTO THE AFFECTED EYE 3 TIMES DAILY STARTING AFTER SURGERY 05/15 completed Not Available Not Available Not Available tamsulosi n 0.4 mg capsule TAKE 2 CAPSULES BY MOUTH EVERY DAY 2024 active Not Available Not Available Not Avai lable baclofen 10 mg tablet Take 1 tablet 3 times a day by oral route as needed. active Not Available Not Available No t Available cephalexi n 500 mg capsule TAKE 1 CAPSULE BY MOUTHEVE RY 6 HOURS FOR 10 DAYS 07/04 completed Not Available Not Available Not Available clotrimaz ole-betam ethasone 1 %-0.05 % topical cream 11/03 completed Not Available Not Available Not Available diclofena c sodium 75 mg tablet,de layed release Take 1 tablet twice a day by oral route. 08/02 completed Not Available Not Available Not Available amoxicill in 250 mg capsule TK 1 C PO Q 8 H TAT 01/30 completed Not Available Not Available Not Available hydrochlo rothiazid e 25 mg tablet TAKE 1 TABLET BY MOUTH EVERY DAY 2024 active Not Available Not Available Not Avai lable lorazepam 1 mg tablet 11/25 completed Not Available Not Available Not Available diazepam 10 mg tablet TK 1 T PO 1 HOUR PRIOR TO CAT SCAN 11/03 completed Not Available Not Available Not Available oxycodone -acetamin ophen 7.5 mg-325 mg tablet 02/25 completed Not Available Not Available Not Available methylpre dnisolone 4 mg tablets in a dose pack TAKE 6 TABLETS ON DAY 1 DIRECTED ON PACKAGE AND DECREASE BY 1 TAB EACH DAY FOR A TOTAL OF 6 DAYS 05/20 completed Not Available Not Available Not Available ketoconaz ole 2 % topical cream APPLY TO THE AFFECTED AREA ONCE DAILY 09/03 completed Not Available Not Available Not Available lisinopri l 40 mg tablet TAKE 1 TABLET BY MOUTH EVERY DAY active Not Available Not Available No t Available atenolol 50 mg tablet TAKE 2 TABLETS EVERY DAY active Not Available Not Available No t Available naproxen 500 mg tablet Take 1 tablet twice a day by oral route. active Not Available Not Available No t Available oxycodone 5 mg tablet 11/15 completed Not Available Not Available Not Available cyclobenz aprine 5 mg tablet Take 1 tablet 3 times a day by oral route. active Not Available Not Available No t Available ProAir HFA 90 mcg/actua tion aerosol inhaler Inhale 2 puffs 4 times a day by inhalati on route as needed for 10 days. active Not Available Not Available No t Available nisoldipi ne ER 17 mg tablet,ex tended release 24 hr TAKE 1 TABLET BY MOUTH EVERY DAY 03/14 completed Not Available Not Available Not Available Eliquis 2.5 mg tablet 11/15 completed Not Available Not Available Not Available Fluzone High-Dose 2018- (PF) 180 mcg/0.5 mL intramusc ular syringe TO BE ADMINIST ERED BY PHARMACI ST FOR IMMUNIZA TION 11/15 completed Not Available Not Available Not Available Fluzone High-Dose Quad (PF) 240 mcg/0.7 mL IM syringe ADM 0.7ML IM UTD 09/11 completed Not Available Not Available Not Available Vitals Date Recorded Body height Provider Name an d Address Organization Details Last Updated DateTime 01/02/2024 177.8 cm Mariangel Danielle [facility] [employer] [facility] [employer] 01/02/2024 09:30:05 Date Recorded Body temperature Body mass index (BMI) Body weight Heart rate Oxygen saturation Oxygen saturation in Arterial blood by Pulse oximetry Systolic blood pressure Diastolic blood pressure Provider Name and Address Organization Details Last Updated DateTime 4 97.2 [degF] 31.6 kg/m2 31421.3 2 g 65 /min 98 % 98 % 138 mm[Hg] 70 mm[Hg] Jillian casey Sheryl [facility] 4 09:33:55 Date Recorded Body height Body temperature Heart rate Oxygen saturation Oxygen saturation in Arterial blood by Pulse oximetry Body mass index (BMI) Body weight Systolic blood pressure Diastolic blood pressure Provider Name and Address Organization Details Last Updated DateTime 4 177.8 cm 97.6 [degF] 62 /min 97 % 97 % 31.4 kg/m2 01784.7 3 g 136 mm[Hg] 72 mm[Hg] Jillian casey [employer] [facility] 4 10:08:45 Date Recorded Body height Body mass index (BMI) Body weight Body temperature Heart rate Oxygen saturation Oxygen saturation in Arterial blood by Pulse oximetry Systolic blood pressure Diastolic blood pressure Provider Name and Address Organization Details Last Updated DateTime 4 177.8 cm 31 kg/m2 74220.9 5 g 97.4 [degF] 61 /min 96 % 96 % 120 mm[Hg] 60 mm[Hg] Jillian Hermila JOSEPH casey [facility] [employer] [facility] 4 16:23:08 Date Recorded Body height Body mass index (BMI) Body weight Body temperature Oxygen saturation Oxygen saturation in Arterial blood by Pulse oximetry Heart rate Systolic blood pressure Diastolic blood pressure Provider Name and Address Organization Details Last Updated DateTime 4 177.8 cm 30.7 kg/m2 37078.7 7 g 97.6 [degF] 97 % 97 % 60 /min 122 mm[Hg] 64 mm[Hg] Babs Brian [facility] [employer] [facility] 4 11:32:30 Date Recorded Body height Body mass index (BMI) Body weight Body temperature Heart rate Oxygen saturation Oxygen saturation in Arterial blood by Pulse oximetry Systolic blood pressure Diastolic blood pressure Provider Name and Address Organization Details Last Updated DateTime 4 177.8 cm 30.4 kg/m2 14791.5 8 g 97.3 [degF] 61 /min 97 % 97 % 118 mm[Hg] 62 mm[Hg] Jillian Cleaning carmela Sheryl [facility] [employer] [facility] 4 12:24:12 Date Recorded Pain severity - 0-10 verbal numeric rating [Score] - Reported Provider Name and Address Organization Details Last Updated DateTime 09/09/2024 0 Xiomara Shirley RN [facility] [employer] [facility] 09/09/2024 14:03:45 Social History Question Answer Notes LastModified by Organization Details LastModified Time Tobacco Smoking Status Never Smoker Not Available [facility] 12/18/2022 02:42:52 Do You Have An Advance Directive? Yes Requested A Copy/paperw ork Provided As Unsure 09/09/2024 [email or web address] Information not available 09/09/2024 What Is Your Level Of Alcohol Consumption? None [id number] Information not available 12/18/2022 Are You Blind Or Do You Have Difficulty Seeing? No MIGRATION.030 [id number] Information not available 12/18/2022 Is Blood Transfusion Acceptable In An Emergency? Yes [email or web address] Information not available 09/09/2024 What Is Your Level Of Caffeine Consumption? Heavy [email or web address] Information not available 09/09/2024 How Much Tobacco Do You Chew? None MIGRATION.0301 [id number] Information not available 12/18/2022 Are You Currently Employed? No [email or web address] Information not available 09/09/2024 Are You Deaf Or Do You Have Serious Difficulty Hearing? No MIGRATION.0301 [id number] Information not available 12/18/2022 What Type Of Diet Are You Following? REGULAR MIGRATION.0301 [id number] Information not available 12/18/2022 Which Illicit Or Recreational Drugs Have You Used? None MIGRATION.0301 [id number] Information not available 12/18/2022 Do You Or Have You Ever Used E-cigarettes Or Vape? Never Used Electronic Cigarettes MIGRATION.030 690018 Information not available 12/18/2022 What Is The Highest Grade Or Level Of School You Have Completed Or The Highest Degree You Have Received? [id number] [email or web address] Information not available 09/09/2024 What Is Your Occupation? Retired MIGRATION.030 610241 Information not available 12/18/2022 How Many Days Of Moderate To Strenuous Exercise, Like A Brisk Walk, Did You Do In The Last 7 Days? 0 [email or web address] Information not available 09/09/2024 Have There Been Any Changes To Your Family Or Social Situation? No [email or web address] Information not available 09/09/2024 What Is The Fluoride Status Of Your Home? Fluoridated MIGRATION.030 165852 Information not available 12/18/2022 Are There Any Guns Present In Your Home? Yes MIGRATION.030 556994 Information not available 12/18/2022 Do You Use Insect Repellent Routinely? No [email or web address] Information not available 09/09/2024 Where Do You Live? [place] MIGRATION.0301 [id number] Information not available 12/18/2022 Presence Of Domestic Violence No [email or web address] Information not available 05/05/2023 Are You Able To Care For Yourself? Yes [email or web address] Information not available 05/05/2023 Are You Blind Or Do Yo Have Difficulty Seeing? No [email or web address] Information not available 05/05/2023 Are You Deaf Or Do You Have Serious Difficulty Hearing? No [email or web address] Information not available 05/05/2023 Live Alone Of With Others? With Others Information not available 05/05/2023 Do You Have A Medical Power Of [place] Supervisor? Yes [email or web address] Information not available 09/09/2024 What Was The Date Of Your Most Recent Tobacco Screening? 09/09/2024 [email or web address] Information not available 09/09/2024 How Many Children Do You Have? 2 [email or web address] Information not available 09/09/2024 Do You Have Any Pets? Yes [email or web address] Information not available 09/09/2024 What Is Your Relationship Status? MIGRATION.0301 [id number] Information not available 12/18/2022 Do You Use Your Seat Belt Or Car Seat Routinely? Yes [email or web address] Information not available 09/09/2024 Do You Have Smoke And Carbon Monoxide Detectors In Your Home? Yes MIGRATION.0301 [id number] Information not available 12/18/2022 Are You Passively Exposed To Smoke? No [email or web address] Information not available 09/09/2024 Do You Or Have You Ever Used Smokeless Tobacco? Never Used Smokeless Tobacco MIGRATION.0301 [id number] Information not available 12/18/2022 Are There Any Smokers In Your House? No [email or web address] Information not available 09/09/2024 What Types Of Sporting Activities Do You Participate In? None [email or web address] Information not available 09/09/2024 Do You Feel Stressed (tense, Restless, Nervous, Or Anxious, Or Unable To Sleep At Night)? [id number] [email or web address] Information not available 09/09/2024 Do You Use Any Illicit Or Recreational Drugs? No MIGRATION.0301 [id number] Information not available 12/18/2022 Do You Use Sunscreen Routinely? No MIGRATION.0301 [id number] Information not available 12/18/2022 Has Tobacco Cessation Counseling Been Provided? No MIGRATION.0301 [id number] Information not available 12/18/2022 Do You Have Any Dietary Restrictions? No [email or web address] Information not available 09/09/2024 Do You Or Have You Ever Used Any Other Forms Of Tobacco Or Nicotine? No MIGRATION.0301 [id number] Information not available 12/18/2022 Sex: Male Functional Status Question Answer Note LastModified by Organizat ion Details LastModified Time Do you have difficulty walking or climbing stairs? No MIGRATION.111919 4749 Information not available 12/18/2022 Do you have transportation difficulties? No MIGRATION.036630 3626 Information not available 12/18/2022 Are you able to walk? YESWOREST MIGRATION.220292 3762 Information not available 12/18/2022 Do you have difficulty doing errands alone? No MIGRATION.824021 6487 Information not available 12/18/2022 Are you able to care for yourself? Yes MIGRATION.096604 3072 Information not available 12/18/2022 Do you have difficulty dressing or bathing? No MIGRATION.797824 0839 Information not available 12/18/2022 What is your exercise level? None yardwork [email or web address] Information not available 09/09/2024 Mental Status Question Answer Note LastModified by Organizat ion Details LastModified Time Do you have difficulty concentrating, remembering or making decisions? No MIGRATION.[id number] 6 Information not available 12/18/2022 Family History Relationship Description Onset Age of this Age Resolved Age Notes LastModified by Organization Details LastModified Time Son Diabetes mellitus MIGRATION.952 [id number] Not available 12/18/2022 02:48:34 Mother Family history of malignant neoplasm MIGRATION.293 [id number] Not available 12/18/2022 02:48:34 Medical History Condition Response HIGH CHOLESTEROL / HYPERLIPIDEMIA Y HYPERTENSION Y CANCER: SPECIFY Y Immunizations Vaccine Type Date Status Note Provider Nam e and Address Organization Details Recorded Time Influenza, split virus, trivalent, PF 3 completed Not Available [facility] 12/18/2022 03:03:53 Influenza, high-dose, trivalent, PF 0 completed Not Available [facility] 12/18/2022 03:03:53 pneumococcal polysaccharide PPV23 0 completed Not Available [facility] 12/18/2022 03:03:53 Influenza, high-dose, trivalent, PF 9 completed Not Available [facility] 12/18/2022 03:03:53 DTaP 9 completed Not Available [facility] 12/18/2022 03:03:53 Influenza, high-dose, trivalent, PF 8 completed Not Available [facility] 12/18/2022 03:03:53 COVID-19, mRNA, LNP-S, PF, 30 mcg/0.3 mL dose 1 completed Not Available [facility] 12/18/2022 03:03:53 Influenza, high-dose, quadrivalent, PF 0 completed Not Available [facility] 12/18/2022 03:03:53 Influenza, split virus, quadrivalent, preservative 2 completed Not Available [facility] 12/18/2022 03:03:53 SARS-COV-2 (COVID-19) vaccine, UNSPECIFIED 1 completed Not Available [facility] 12/18/2022 03:03:53 SARS-COV-2 (COVID-19) vaccine, UNSPECIFIED 1 completed Not Available [facility] 12/18/2022 03:03:53 Influenza, split virus, quadrivalent, preservative 9 completed Not Available [facility] 12/18/2022 03:03:53 Influenza, high-dose, trivalent, PF 6 completed Not Available [facility] 12/18/2022 03:03:54 Influenza, high-dose, quadrivalent, PF 1 completed Not Available [facility] 12/18/2022 03:03:54 Influenza, high-dose, trivalent, PF 8 completed Not Available [facility] 12/18/2022 03:03:54 Influenza, split virus, quadrivalent, PF 7 completed Not Available [facility] 12/18/2022 03:03:54 Influenza, split virus, quadrivalent, preservative 6 completed Not Available [facility] 12/18/2022 03:03:54 Influenza, high-dose, trivalent, PF 5 completed Not Available [facility] 12/18/2022 03:03:54 Pneumococcal conjugate PCV 13 7 completed Not Available [facility] 12/18/2022 03:03:54 Influenza, split virus, trivalent, PF 4 completed Not Available [facility] 12/18/2022 03:03:54 Past Encounters Encounter ID Performer Location Encounter Start Date Encounter Closed Date Diagnosis/Indication Diagnosis SNOMED-CT Code Diagnosis ICD10 Code Diagnosis Note [id number] [facility] [address] [place] [address] 01/08/2021 00:00:00 01/08/2021 13:59:42 [id number] [facility] [address] [address] 04/19/2021 00:00:00 04/29/2021 16:22:25 [id number] [facility] [address] [place] [address] 05/08/2021 00:00:00 05/08/2021 10:44:13 [id number] [facility] [address] [address] 08/02/2021 00:00:00 08/02/2021 14:17:02 [id number] [facility] [address] [address] 09/04/2021 00:00:00 09/04/2021 11:58:43 [id number] [facility] [address] [address] 10/25/2021 00:00:00 10/25/2021 10:33:30 [id number] [facility] [address] [address] 11/15/2021 00:00:00 11/15/2021 11:07:32 [id number] [facility] [address] [address] 12/13/2021 00:00:00 12/13/2021 09:06:21 [id number] [facility] [address] [address] 01/02/2022 00:00:00 01/02/2022 09:52:51 [id number] [facility] [address] [address] 05/01/2022 00:00:00 05/01/2022 13:17:54 [id number] [facility] [place] [address] [facility], [address] [place] [address] 05/09/2022 00:00:00 05/09/2022 10:38:19 [id number] [facility] [place] [address], [address] [place] [address] 05/20/2022 00:00:00 05/20/2022 10:33:50 [id number] [facility] [place] [address] [facility], [facility] [address] [place] [address] 06/10/2022 00:00:00 06/10/2022 10:08:43 [id number] [facility] [address] [address] 07/04/2022 00:00:00 07/18/2022 09:34:24 [id number] [facility] [place] [address] [facility], [address] [address] 07/18/2022 00:00:00 07/18/2022 11:38:26 [id number] [facility] [address] [address] 08/08/2022 00:00:00 08/08/2022 11:00:35 [id number] [facility] [address] [facility] [place] [address] 09/02/2022 00:00:00 09/02/2022 09:54:37 [id number] [facility] [address] [address] 10/17/2022 00:00:00 10/17/2022 10:01:41 [id number] Julia Brown MD [facility] [address] [facility] [place] [address] 01/01/2023 09:35:06 01/01/2023 09:54:29 Essential hypertension 48160716 I10 UNDER CONTROL Hyperlipidemia 52993614 E78.5 LABS Malignant tumor of prostate 443582435 C61 SEEING UROLOGY, BEING WATCHED WITH PSA Obesity 212021279 E66.9 advised to lose Gastroesop hageal reflux disease 041370635 K21.9 meds help Adult [facility] examination 069674673 Z00.00 Colonoscop y- 12/11, benign polyp removed, dr Franco- lisa umovax- 04/06/2010 Prevnar 01/30/2017 FLU- 2COV ID Vacc- 12/03/20 & 12/31/20, #3 - 08/18/2021 Hyperglycemia 17229091 R 73.9 need to watch diet Umbilical hernia 1084283 07 K42.9 small, watch Polyp of colon 31480428 K63.5 [id number] Bhaskar Mayfield MD [facility] [address], [address] [place] [address] 02/06/2023 09:47:22 02/06/2023 10:13:07 Prostate specific antigen above reference range 641175300 R97.20 Malignant tumor of prostate 571987854 C61 continue 6 mo check up [id number] Julia Brown MD [facility] [address] [facility] [place] [address] 05/05/2023 09:36:30 05/05/2023 10:01:31 Essential hypertension 16438270 I10 UNDER CONTROL Hyperlipidemia 55515255 E78.5 LABS Malignant tumor of prostate 444435502 C61 SEEING UROLOGY, BEING WATCHED WITH PSA Obesity 836228262 E66.9 advised to lose Gastroesop hageal reflux disease 757753560 K21.9 meds help Adult [facility] th examination 925555860 Z00.00 Colonoscop y- 12/11, benign polyp removed, dr Franco- lisa umovax- 04/06/2010 Prevnar - 01/30/2017 FLU- 2COV ID Vacc- 12/03/20 & 12/31/20, #3 - 08/18/2021 Hyperglycemia 87487982 R 73.9 need to watch diet, Umbilical hernia 3379305 07 K42.9 small, watch, not getting bigger Polyp of colon 60542872 K63.5 Gout 43440403 M10.9 under control Screening for disorder 442093665 Z13.9 [id number] Julia Brown MD [facility] Internal [facility] [address] [place] [address] 09/03/2023 09:38:46 09/03/2023 10:10:49 Essential hypertension 13887841 I10 under conytrol Hyperlipidemia 09407429 E78.5 LABS good Malignant tumor of prostate 010891871 C61 BEING WATCHED WITH PSA at urology Obesity 921904157 E66.9 advised to lose Gastroesop hageal reflux disease 767330299 K21.9 meds help Hyperglycemia 57429392 R 73.9 need to watch diet, Umbilical hernia 4978718 07 K42.9 small, watch, not getting bigger Polyp of colon 65941312 K63.5 colonoscop y 12/11 Adult [facility] th examination 754502855 Z00.00 Colonoscop y- 12/11, benign polyp removed, dr Franco- ne umovax- 04/06/2010 Prevnar - 01/30/2017 FLU- 2COV ID Vacc- 12/03/20 & 12/31/20, #3 - 08/18/2021 Gout 55584006 M10.9 on meds Tinnitus of right ear 48 31419997 108 H93.11 due to wax Impacted c erumen of bilateral ears 2439242388 239766 H61.23 needs cleaning [id number] Julia Brown MD [facility] Internal [place] [address] [facility] [place] [address] 09/10/2023 10:08:57 09/10/2023 11:11:45 Impacted cerumen of bilateral ears [id number] 889354 H61.23 cleaning done with water, all the wax removed, ear canals and TM clear [id number] Julia Brown MD [facility] [address] [place] [address] 01/02/2024 09:28:02 01/02/2024 10:22:09 Essential hypertension 81746346 I10 under control Hyperlipidemia 74866029 E78.5 LABS good Malignant tumor of prostate 498824526 C61 PSA at urology Obesity 590818372 E66.9 advised to lose and watch diet Gastroesop hageal reflux disease 872325235 K21.9 meds help Hyperglycemia 79475694 R 73.9 need to watch diet, Umbilical hernia 1962859 07 K42.9 small, watch, not getting bigger Polyp of colon 07995588 K63.5 colonoscop y 12/11 Adult [facility] examination 731422123 Z00.00 Colonoscop y- 12/11, benign polyp removed, dr Franco- 01/27/2023 Pneumovax- 04/06/2010 Prevnar - 01/30/2017 FLU- 2RSV - NEVERShing les- NEVERCOVID Vacc- 12/03/20 & 12/31/20, #3 - 08/18/2021 Gout 05095230 M10.9 on meds, labs next time [id number] Julia Brown MD [facility] [address] [facility] [place] [address] 05/10/2024 10:04:12 05/10/2024 10:42:34 Essential hypertension 13853907 I10 under control Hyperlipidemia 49573110 E78.5 under control Malignant tumor of prostate 315845148 C61 PSA at urology Obesity 619585466 E66.9 advised to lose Gastroesop hageal reflux disease 980148147 K21.9 meds help Gout 26653683 M10.9 on meds, Hyperglycemia 56572669 R 73.9 watching diet, Umbilical hernia 7483167 07 K42.9 small, watch, not getting bigger Polyp of colon 22225526 K63.5 colonoscop y 12/11 Adult [facility] examination 793390784 Z00.00 Colonoscop y- 12/11, benign polyp removed, dr Franco- gets at urologyPne umovax- 04/06/2010 Prevnar - 01/30/2017 FLU- 2RSV - NEVERShing les- NEVERCOVID Vacc- 12/03/20 & 12/31/20, #3 - 08/18/2021 Impacted c erumen of bilateral ears 8400426293 900840 H61.23 needs cleaning [id number] Julia Brown MD [facility] [address] [facility] [place] [address] 05/17/2024 16:06:42 05/17/2024 16:38:20 Impacted cerumen of bilateral ears 2777460921 103053 H61.23 cleaning done, all the wax removedTM and canals clear [id number] Julia Brown MD [facility] [address] [facility] [place] [address] 06/10/2024 11:23:43 06/10/2024 12:15:13 Dizziness 120103611 R42 improved Diabetes m ellitus screening 337029542 Z13.1 watch diet, lose weight [id number] Julia Brown MD [facility] Internal [address] [address] [facility] [place] [address] 09/09/2024 11:57:18 09/09/2024 13:02:41 Essential hypertension 26076075 I10 under control Hyperlipidemia 82627077 E78.5 under control Malignant tumor of prostate 046364590 C61 PSA at urology Obesity 369830501 E66.9 advised to watch diet and lose Gastroesop hageal reflux disease 565300678 K21.9 meds help Gout 26234024 M10.9 under control Hyperglycemia 31441393 R 73.9 watching diet, Umbilical hernia 2783919 07 K42.9 small, watch, not getting bigger Polyp of colon 38950849 K63.5 colonoscop y 12/11 Adult [facility] th examination 601792235 Z00.00 Colonoscop y- 12/11, benign polyp removed, dr Franco- gets at urologyPne umovax- 04/06/2010 Prevnar 13 - 01/30/2017 FLU- 07/2024 ([facility])RSV- NEVERShing les- NEVERCOVID Vacc- 12/03/20 & 12/31/20, #3 - 08/18/2021 , 07/2024 ([facility]) Screening for disorder 582556365 Z13.9 Health Concerns Section Related Observation LastModified by Organization Detai ls LastModified Time None Recorded Concern Status LastModified by Organization Details LastModified Time None Recorded Advance Directives Directive Y: requested a copy/paperwor k provided as unsure 09/09/2024 Payers Encounter Date Sequence Insurance Name Policy Number Policy Crowley Covered Member ID Crowley Member ID Guarantor Name 01/02/2024 1 [place] Mike Hernandezo [id number] [employer] 01/02/2024 2 [place] [id number] [employer] [id number] [employer] 05/10/2024 1 [place] Mike Hernandezo [id number] [employer] 05/10/2024 2 [place] [id number] [employer] [id number] [employer] 05/17/2024 1 [place] Mike Hernandezo [id number] [employer] 05/17/2024 2 [place] [id number] [employer] [id number] [employer] 06/10/2024 1 [place] Mike Hernandezo [id number] [employer] 06/10/2024 2 [place] [id number] [employer] [id number] [employer] 09/09/2024 1 [place] Mike Hernandezo [id number] 9 [employer] 09/09/2024 2 [place] [id number] [employer] [id number] [employer] Notes Date Note Type Note Provider Name and Address Organization Details Recorded Time 4 text/html Here for routine f/u, compliant to meds. HTN- on multiple meds, B/p is under controlMeds- Atenolol 100 mg tabs daily, HCTZ 25 mg daily, Lisinopril 40 mg dailyHyperlipidemia- on meds, under control, labs 05/11Meds- Simvastatin 40 mg dailyProstate cancer-meds help, nocturia 2x, Had Biopsy with Rajiv Harris @ [facility] in 07/09 has low grade cancer, being watched, no treatment unless start progressing, seeing urology,Meds- Tamsulosin 0.4 mg dailyObesity- has not gained wtGERD- on meds, taking daily, symptoms are under controlMeds- Omeprazole 40 mg dailyHyperglycemia- watching diet, lose weight, A1c - 5.8Gout- uric acid was high, on AllopurinolUmbilical hernia- stable, no pain, not getting biggerBack pain- MRI spinal stenosis, arthritis, s/p BACK SURGERY 12/07,Arthritis- S/P right hip replacementH/O Hemorrhoids, s/p surgery, no symptoms Julia Brown MD [address] [facility], [facility] [address], [place], [address], [facility] [employer] 01/02/2024 09:47:34 4 text/html Here for routine f/u, compliant to meds. is also here today for an exam and she is concerned about Dementia, States that recently she has noticed him not recognizing familiar places, places that they have been he says hes never seen.discussed pt, does not think he has problem, will watch , may need MME HTN- on multiple meds, B/p is under controlMeds- Atenolol 100 mg tabs daily, HCTZ 25 mg daily, Lisinopril 40 mg dailyHyperlipidemia- on meds, under control, labs dueMeds- Simvastatin 40 mg dailyProstate cancer-meds help, nocturia 2x, Had Biopsy with Rajiv Harris @ [facility] in 07/09 has low grade cancer, being watched, no treatment unless start progressing, seeing urology,Meds- Tamsulosin 0.4 mg dailyObesity- has not lostGERD- on meds, taking daily, symptoms are under controlMeds- Omeprazole 40 mg dailyHyperglycemia- watching diet, lose weight, A1c - 5.8 (01/27/23)Gout- uric acid was high, on AllopurinolUmbilical hernia- stable, no pain, not getting biggerBack pain- MRI spinal stenosis, arthritis, s/p BACK SURGERY 12/07,Arthritis- S/P right hip replacementH/O Hemorrhoids, s/p surgery, no symptoms Julia Brown MD [address] [facility], [place], [address], [facility] [employer] 05/10/2024 10:24:34 4 text/html Pt is here today for a Bilateral ear irrigationboth are clogged Julia Brown MD [address], [address], [place], [address], [facility] [employer] [facility] 05/17/2024 16:40:27 4 text/html Pt is here today for a ER follow up.Record obtained and reviewed and discussedHe went to [place] [facility] [place] after having a couple episodes for dizziness and nauseated. He did accu check and was 200.EKG, labs, urine, all nl in the ERHe was already feeling better when reached ER, glucose was 95Their work up was negative for any problems, advised to follow up with pcp.He states that he has not had any more episodes since Julia Brown MD [address], [facility] [address], [place], [address], [facility] [employer] 06/10/2024 11:59:46 4 text/html Here for routine f/u, compliant to meds.PT IS FASTING ( Medicare/[facility] ) HTN- on multiple meds, B/p is under controlMeds- Atenolol 100 mg tabs daily, HCTZ 25 mg daily, Lisinopril 40 mg dailyHyperlipidemia- on meds, under control, labs good 05/12Meds- Simvastatin 40 mg dailyProstate cancer-meds help, nocturia 2x, Had Biopsy with Rajiv Harris @ [facility] in 07/09 has low grade cancer, being watched, no treatment unless start progressing, seeing urology,Meds- Tamsulosin 0.4 mg dailyObesity- has lost 2 lbs, watching dietGERD- on meds, taking daily, symptoms are under controlMeds- Omeprazole 40 mg dailyHyperglycemia- watching diet, lose weight, A1c - 5.7 (06/10/24)Gout- uric acid was high, on Allopurinol and nl levels in 05/12Umbilical hernia- stable, no pain, not getting biggerBack pain- MRI spinal stenosis, arthritis, s/p BACK SURGERY 12/07,Arthritis- S/P right hip replacementH/O Hemorrhoids, s/p surgery, no symptoms Julia Brown MD [address] [place] [address], [facility] [address], [place], [address], [place] [facility] 09/09/2024 17:46:40
--- OUTSIDE RECORDS SUMMARY | 2024-12-09 19:11 | XMS_ITS | Clinical Summary ---
Author Organization [facility] Address [address] [place] [address] Care Team Providers Care Sluice Tender Name Role Phone Andrés Brown MD Primary Care Provider [phone] Allergies No known active allergies Medications tamsulosin [...] (07/07/2020): Added automatically from request for surgery [id number] Surgical History Surgery Date Site/Laterality Comments GALLBLADDER SURGERY BACK SURGERY CHOLECYSTECTOMY SPINE SURGERY Medical History Medical History Date Comments Hypertension BPH (benign prostatic hyperplasia) Hyperlipidemia Family History Medical History Relation Name Comments Cancer Mother Relation Name Status Comments Mother Social History Tobacco Use Types Packs/Day Years [...] on file 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 Gender Identity Not on file Sexual Orientation Not on file Obstetrics History Last Filed Vital Signs Vital Sign Reading [...] 07/27/2020 10:03 AM CDT Plan of Treatment Health Maintenance Due Date Last Done Comments Depression Screening 1944 Fall Risk Assessment 1945 Hepatitis B Screening 1962 Zoster Vaccine (1 of 2) 1994 Well Visit 65+ 2009 DTaP/Tdap/Td Vaccine (2 - Tdap) 05/05/2019 9 Influenza Vaccine (#1) 2024 2, 08/20/2019, 08/04/2018, Additional history exists Pneumococcal vaccine 65+ Completed 01/30/2017, 03/20 Medical Devices Implanted Type Area System Trainer Device Identifier Shelf Expiration Date Model / Serial / Lot Lumbar Fusion-12/19/2016 Implanted:12/19 (Quantity not on file) Spine Lumbar Insurance MEDICARE [facility] MEDICARE [facility] Care Teams Sluice Tender Relationship Specialty Start Date End Date Andrés Brown MD PCP - General Internal Medicine 04/15/19
--- NOTE | 2024-12-09 19:12 | ECG_ITS ---
Test Date: 2024-12-09 19:22:07 Measurements Intervals [place] Rate: 76 P: 0 MD: 0 QRS: 24 QRSD: 86 T: 57 QT: 391 QTc: 442 Interpretive Statements ATRIAL FIBRILLATION BASELINE ARTIFACT- I, II, III, AVR, AVL, AVF ABNORMAL ECG Compared to ECG 06/04/2024 20:53:15 Sinus rhythm no longer present Electronically Signed On 12-09-2024 19:56:54 POWDER PRESS OPERATOR by Keith Saunders D.O.
[2024-12-09 19:47] LABS: Basophils Absolute Auto 0.1 K/mm3 (0.0-0.1); Basophils Percent Auto 0.5 % (0.2-1.2); Eosinophils Absolute Auto 0.2 K/mm3 (0-0.3); Eosinophils Percent Auto 1.8 % (0-4.4); Hematocrit 48.6 % (42.0-52.0); Hemoglobin 16.4 g/dL (14.0-18.0); Immature Granulocyte Absolute 0.06 K/mm3 (0.00-0.031); Immature Granulocyte Percent A 0.7 % (0-0.5); Lymphocytes Absolute Auto 1.76 K/mm3 (0.9-3.2); Lymphocytes Percent Auto 19.3 % (18.3-44.2); Mean Corpuscular HGB Conc 33.7 g/dl (32-36); Mean Corpuscular Hemoglobin 31.5 pg (26-34); Mean Corpuscular Volume 93.3 fl (80-100); Mean Platelet Volume 9.8 fl (7.4-10.4); Monocytes Absolute Auto 0.8 K/mm3 (0.1-0.6); Monocytes Percent Auto 8.7 % (2.6-8.5); Neutrophils Absolute Auto 6.3 K/mm3 (1.3-6.7); Platelet Count Result 255 k/mm3 (150-375); Red Blood Count 5.21 M/mm3 (4.6-6.20); Red Cell Distribution Width 13.3 % (11.5-14.5); White Blood Count 9.1 K/mm3 (4.5-10.0)
[2024-12-09 19:54] LABS: Alanine Aminotransferase 18 U/L (6-50); Albumin Level 4.2 g/dL (3.5-5.1); Alkaline Phosphatase 68 U/L (38-126); Anion Gap 9 mmol/L (4-12); Aspartate Amino Transferase 23 U/L (17-59); Bilirubin,Total 0.7 mg/dL (0.2-1.3); Blood Urea Nitrogen 13 mg/dL (9-20); Calcium 9.2 mg/dL (8.4-10.2); Carbon Dioxide 28 mmol/L (22-30); Chloride 100 mmol/L (98-107); Estimated Glomerular Filt Rate > 60; Glucose 147 mg/dL (65-110); Potassium 3.8 mmol/L (3.4-5.0); Sodium 137 mmol/L (137-145)
[2024-12-09 22:50] LABS: Troponin I < 0.012 ng/mL (0.000-0.034)
--- NOTE | 2024-12-09 22:58 | ED_ITS ---
HPI - Dizziness General Chief Complaint: Syncope Stated Complaint: syncopal episode x3 minutes Time Seen by Provider: 12/09/24 22:29 Related Data Home Medications ?Medication ?Instructions ?Recorded ?Confirmed ?Last Taken ?Type atenolol 100 mg tablet 100 mg PO QAM 10/01/21 11/22/21 12/06/21 History hydrochlorothiazide 25 mg tablet 25 mg PO DAILY 10/01/21 11/22/21 12/06/21 History lisinopril 40 mg tablet 40 mg PO DAILY 10/01/21 11/22/21 12/06/21 History omeprazole 40 mg capsule,delayed 40 mg PO DAILY 10/01/21 11/22/21 12/06/21 History release simvastatin 40 mg tablet 40 mg PO HS 10/01/21 11/22/21 12/06/21 History tamsulosin 0.4 mg capsule 0.8 mg PO QAM 10/01/21 11/22/21 12/06/21 History Allergies Allergy/AdvReac Type Severity Reaction Status Date / Time No Known Allergies Allergy Verified 06/04/24 21:59 [facility] Past Medical History Medical History Arthritis Gastroesophageal reflux disease Hyperlipidemia Hypertension Obesity Prostate CA Surgical History Surgical History History of bilateral cataract extraction History of laparoscopic cholecystectomy (11/22/11) History of lumbar surgery (2018) History of right hip replacement (10/15/21) Family History Family History Sibling Family history of kidney disease Father Family history of diabetes mellitus in first degree relative Other Hypertension Social History Social History Social History: Surrogate decision maker: Anel Cintron, . Code status: Full code. Smoking status: Never smoker Alcohol intake: never Alcohol use details: Social alcohol use in moderation. Substance use: never Substance use type: does not use Living arrangements: with family Additional living arrangements comments: The patient lives with his in [place]. Additional occupation/education comments: Retired. Spiritual care concerns: No Course Vital Signs Vital signs: Vital Signs Temperature 97.3 F L 12/09/24 19:26 Pulse Rate 63 12/09/24 19:26 Respiratory Rate 16 12/09/24 19:26 Blood Pressure 122/63 12/09/24 19:26 Pulse Oximetry 97 12/09/24 19:26 Oxygen Delivery Room Air 12/09/24 19:26 Temperature 97.3 F L 12/09/24 19:26 Pulse Rate 63 12/09/24 19:26 Respiratory Rate 16 12/09/24 19:26 Blood Pressure 122/63 12/09/24 19:26 Pulse Oximetry 97 12/09/24 19:26 Oxygen Delivery Room Air 12/09/24 19:26 MDM - Dizziness MDM Narrative Medical decision making narrative: The patient was evaluated by myself in the emergency department. History is obtained from patient who is an independent along with family members present at bedside historian and physical exam was performed. External medical records were reviewed at this time. IV was established and pertinent tests were ordered. EKG was obtained which revealed atrial fibrillation a rate of 76 beats per minute. No ST changes, T wave inversions or evidence of acute ischemia. EKG was independently interpreted by me and is currently pending official cardiology read. Laboratory results obtained revealing [laboratory data]. Imaging studies obtained included [study] which was independently interpreted by me revealing [finding], which is pending final radiology interpretation. Differential diagnosis considerations include [differential] but is less likely due to [reasons]. Comorbidities impacting this visit include [comorbidities]. I have evaluated and discussed social determinants of health with the patient that could potentially impact subsequent diagnosis and treatment plans. On repeat assessment of the patient, reevaluation revealed that the patient is doing well and is in no acute distress. Patient symptoms have improved since [he/she] arrived to our emergency department. Repeat vital signs were all reviewed and noted to be stable. Differential diagnosis and treatment plan were discussed with the patient at bedside. Patient agrees with discussion and after shared medical decision making agrees with [admission/discharge]. All questions were answered to the patient's satisfaction. Patient will be admitted to our [ ] under the care of [ ]. The patient remains stable and ready for admission. Patient will follow up with Cardiology in 3-5 days. Patient was provided with strict return precautions and instructed to return to the emergency department if any new or worsening symptoms develop. The patient was discharged in stable condition. Lab Data 12/09/24 19:32 12/09/24 19:32 Labs: Lab Results 12/09/24 Range/Units 19:32 WBC 9.1 (4.5-10.0) K/mm3 RBC 5.21 (4.6-6.20) M/mm3 Hgb 16.4 (14.0-18.0) g/dL Hct 48.6 (42.0-52.0) % MCV 93.3 (80-100) fl MCH 31.5 (26-34) pg MCHC 33.7 (32-36) g/dl RDW 13.3 (11.5-14.5) % Plt Count 255 (150-375) k/mm3 MPV 9.8 (7.4-10.4) fl Immature Gran % (Auto) 0.7 H (0-0.5) % Neut % (Auto) 69.0 (45.5-73.1) % Lymph % (Auto) 19.3 (18.3-44.2) % [place] % (Auto) 8.7 H (2.6-8.5) % Eos % (Auto) 1.8 (0-4.4) % Baso % (Auto) 0.5 (0.2-1.2) % Lymph # (Auto) 1.76 (0.9-3.2) K/mm3 [place] # (Auto) 0.8 H (0.1-0.6) K/mm3 Eos # (Auto) 0.2 (0-0.3) K/mm3 Baso # (Auto) 0.1 (0.0-0.1) K/mm3 Abs Immat Gran (auto) 0.06 H (0.00-0.031) K/mm3 Absolute Neuts (auto) 6.3 (1.3-6.7) K/mm3 Absolute Nucleated RBC 0.000 (0.0-0.012) K/mm3 Nucleated RBC % 0.0 (0.0-0.2) % Sodium 137 (137-145) mmol/L Potassium 3.8 (3.4-5.0) mmol/L Chloride 100 (98-107) mmol/L Carbon Dioxide 28 (22-30) mmol/L Anion Gap 9 (4-12) mmol/L BUN 13 D (9-20) mg/dL Creatinine 1.06 (0.7-1.3) mg/dL Estim Creat Clear Calc Not Reportable Estimated GFR > 60 (59 - ) Glucose 147 H (65-110) mg/dL Calcium 9.2 (8.4-10.2) mg/dL Total Bilirubin 0.7 (0.2-1.3) mg/dL AST 23 (17-59) U/L ALT 18 (6-50) U/L Alkaline Phosphatase 68 (38-126) U/L Troponin I < 0.012 (0.000-0.034) ng/mL Total Protein 7.0 (6.3-8.2) g/dL Albumin 4.2 (3.5-5.1) g/dL Discharge Plan Discharge Clinical Impression: Syncope Patient Disposition: Home, Self-Care Condition: Improved Instructions: Antibiotic Form, Syncope (ED) Additional Instructions: Please follow-up with the lead etl developer you were provided with, call tomorrow to set up a follow-up appointment regarding her possible syncopal episode. You also instructed follow-up with your primary care physician within the next 3-5 days and return to the ED if any new or worsening symptoms develop. Patient Language: Polish Prescriptions: No Action atenolol 100 mg tablet 100 mg PO QAM omeprazole 40 mg capsule,delayed release(DR/EC) 40 mg PO DAILY simvastatin 40 mg tablet 40 mg PO HS tamsulosin 0.4 mg capsule 0.8 mg PO QAM hydrochlorothiazide 25 mg tablet 25 mg PO DAILY lisinopril 40 mg tablet 40 mg PO DAILY celecoxib [Celebrex] 200 mg Capsule 200 mg PO DAILY Qty: 9 0RF Follow-up/Referrals: Gil Cifuentes MD [Physician] - 3 Days Stephanie,Andrés Morales MD [Primary Care Provider] - 3 Days Time of Disposition: 23:00
--- NOTE | 2024-12-09 22:58 | ED_ITS ---
HPI - Dizziness General Chief Complaint: Syncope Stated Complaint: syncopal episode x3 minutes Time Seen by Provider: 12/09/24 22:29 History of Present Illness HPI Narrative: Patient is an 79-year-old male who presents the emergency department this evening complaining of a possible syncopal episode that occurred while he was at a restaurant. Family members including patient's states that she was sitting with him when this happened. She states that patient close his eyes for approximately 3 minutes. Patient did not leaned over to 1 side or fall backwards are into the table while this episode happened he simply stated sitting upright. Family member states that there are to previous episodes were he had similar symptoms and during 1 of those episodes he did come to the emergency department and a full workup revealed no acute process and patient was discharged with outpatient follow-up with his primary care physician. Denies any recent falls or head trauma and patient is currently asymptomatic. Even while the syncopal episode described by his family members, patient states that he did not have any symptoms. Related Data Home Medications ?Medication ?Instructions ?Recorded ?Confirmed ?Last Taken ?Type atenolol 100 mg tablet 100 mg PO QAM 10/01/21 11/22/21 12/06/21 History hydrochlorothiazide 25 mg tablet 25 mg PO DAILY 10/01/21 11/22/21 12/06/21 History lisinopril 40 mg tablet 40 mg PO DAILY 10/01/21 11/22/21 12/06/21 History omeprazole 40 mg capsule,delayed 40 mg PO DAILY 10/01/21 11/22/21 12/06/21 History release simvastatin 40 mg tablet 40 mg PO HS 10/01/21 11/22/21 12/06/21 History tamsulosin 0.4 mg capsule 0.8 mg PO QAM 10/01/21 11/22/21 12/06/21 History Allergies Allergy/AdvReac Type Severity Reaction Status Date / Time No Known Allergies Allergy Verified 06/04/24 21:59 Review of Systems 2 Review of Systems: All systems are reviewed and are negative unless stated otherwise in the HPI. [facility] Past Medical History Medical History Arthritis Gastroesophageal reflux disease Hypertension Prostate CA Obesity Hyperlipidemia Surgical History Surgical History History of bilateral cataract extraction History of right hip replacement (10/15/21) History of lumbar surgery (2018) History of laparoscopic cholecystectomy (11/22/11) Family History Family History Sibling Family history of kidney disease Father Family history of diabetes mellitus in first degree relative Other Hypertension Social History Social History Social History: Surrogate decision maker: Anel Cintron, . Code status: Full code. Smoking status: Never smoker Alcohol intake: never Alcohol use details: Social alcohol use in moderation. Substance use: never Substance use type: does not use Living arrangements: with family Additional living arrangements comments: The patient lives with his in [place]. Additional occupation/education comments: Retired. Spiritual care concerns: No Exam 2 Narrative: General: Alert, awake, afebrile, in no acute distress. HEENT: PERRL, no rhinorrhea, no post nasal drip, oropharynx clear. Neck: Trachea midline, no JVD, no lymphadenopathy. Cardiovascular: Regular rate and irregular rhythm, no murmurs, rubs or gallops, no peripheral edema. Respiratory: Clear to auscultation bilaterally, no tachypnea, no wheezing, no rhonchi, no rubs, no respiratory distress. Abdomen: Soft, nontender, nondistended, no rebound, no guarding, no peritoneal signs. Musculoskeletal: No joint swelling or deformity, normal muscle tone. Skin: No rashes or petechia, no signs of infection. Psychiatric: Alert and oriented, normal behavior and judgment for situation. Neurological: Alert and oriented to person, place, and time. Follows all commands. No focal deficits, speech is clear and fluent. Course Vital Signs Vital signs: Vital Signs Temperature 97.3 F L 12/09/24 19: Pulse Rate 63 12/09/24 19:26 Respiratory Rate 16 12/09/24 19:26 Blood Pressure 122/63 12/09/24 19:26 Pulse Oximetry 97 12/09/24 19:26 Oxygen Delivery Room Air 12/09/24 19:26 Temperature 97.3 F L 12/09/24 19:26 Pulse Rate 73 12/09/24 23:30 Respiratory Rate 12 12/09/24 23:30 Blood Pressure 91/62 L 12/09/24 22:16 Pulse Oximetry 96 12/09/24 23:30 Oxygen Delivery Room Air 12/09/24 19:26 MDM - Dizziness MDM Narrative Medical decision making narrative: The patient was evaluated by myself in the emergency department. History is obtained from patient who is an independent historian and physical exam was performed. External medical records were reviewed at this time. IV was established and pertinent tests were ordered. EKG was obtained which revealed atrial fibrillation at a rate of 71 beats per minute. No ST changes, T wave inversions or evidence of acute ischemia. EKG was independently interpreted by me and is currently pending official cardiology read. Per chart review, patient has no documented history of atrial fibrillation and patient denies any history of AFib. Currently not on any blood thinners. Patient's Enrique Vasc score is 3. Laboratory results obtained revealing no acute process. Imaging studies obtained included CXR which was independently interpreted by me revealing no acute cardiopulmonary process, which is pending final radiology interpretation. At this time, case was discussed with the on-call shoveler Dr. Cifuentes at [phone] and he agrees that given that the patient is rate controlled and asymptomatic he does not need hospital admission and can be followed up as an outpatient. Given patient's Enrique Vasc score of 3, he will be started on Xarelto 20 mg daily. I did check the patient's home medications which include atenolol 50 mg daily which he states he takes for his hypertension. I did discuss with the patient side effects of anticoagulation including the risk of bleeding and informed him that he needs to be very careful with falls particularly head trauma as is kidney increased stresses of intracranial hemorrhage. Patient was also instructed to refrain from using NSAIDs while on the blood thinner and patient is agreeable. Differential diagnosis considerations include electrolyte derangements, arrhythmia, dehydration, infection, new onset AFib. Comorbidities impacting this visit include history of hypertension. I have evaluated and discussed social determinants of health with the patient that could potentially impact subsequent diagnosis and treatment plans. On repeat assessment of the patient, reevaluation revealed that the patient is doing well and is in no acute distress. Patient symptoms have remained stable since he arrived to our emergency department. Repeat vital signs were all reviewed and noted to be stable. Differential diagnosis and treatment plan were discussed with the patient at bedside. Patient agrees with discussion and after shared medical decision making agrees with discharge. All questions were answered to the patient's satisfaction. Patient will follow up with cardiology in 3-5 days. Script for Xarelto 20 mg was sent to patient's pharmacy to take as prescribed. Patient was provided with strict return precautions and instructed to return to the emergency department if any new or worsening symptoms develop. The patient was discharged in stable condition. Lab Data 12/09/24 19:32 12/09/24 19:32 Labs: Lab Results 12/09/24 Range/Units 19:32 WBC 9.1 (4.5-10.0) K/mm3 RBC 5.21 (4.6-6.20) M/mm3 Hgb 16.4 (14.0-18.0) g/dL Hct 48.6 (42.0-52.0) % MCV 93.3 (80-100) fl MCH 31.5 (26-34) pg MCHC 33.7 (32-36) g/dl RDW 13.3 (11.5-14.5) % Plt Count 255 (150-375) k/mm3 MPV 9.8 (7.4-10.4) fl Immature Gran % (Auto) 0.7 H (0-0.5) % Neut % (Auto) 69.0 (45.5-73.1) % Lymph % (Auto) 19.3 (18.3-44.2) % Carter % (Auto) 8.7 H (2.6-8.5) % Eos % (Auto) 1.8 (0-4.4) % Baso % (Auto) 0.5 (0.2-1.2) % Lymph # (Auto) 1.76 (0.9-3.2) K/mm3 Carter # (Auto) 0.8 H (0.1-0.6) K/mm3 Eos # (Auto) 0.2 (0-0.3) K/mm3 Baso # (Auto) 0.1 (0.0-0.1) K/mm3 Abs Immat Gran (auto) 0.06 H (0.00-0.031) K/mm3 Absolute Neuts (auto) 6.3 (1.3-6.7) K/mm3 Absolute Nucleated RBC 0.000 (0.0-0.012) K/mm3 Nucleated RBC % 0.0 (0.0-0.2) % PT 13.2 (11.1-14.7) Seconds INR 1.0 APTT 26.1 (22.3-36.8) Seconds Sodium 137 (137-145) mmol/L Potassium 3.8 (3.4-5.0) mmol/L Chloride 100 (98-107) mmol/L Carbon Dioxide 28 (22-30) mmol/L Anion Gap 9 (4-12) mmol/L BUN 13 D (9-20) mg/dL Creatinine 1.06 (0.7-1.3) mg/dL Estim Creat Clear Calc Not Reportable Estimated GFR > 60 (59 - ) Glucose 147 H (65-110) mg/dL Calcium 9.2 (8.4-10.2) mg/dL Magnesium 2.0 (1.6-2.3) mg/dL Total Bilirubin 0.7 (0.2-1.3) mg/dL AST 23 (17-59) U/L ALT 18 (6-50) U/L Alkaline Phosphatase 68 (38-126) U/L Troponin I < 0.012 (0.000-0.034) ng/mL Total Protein 7.0 (6.3-8.2) g/dL Albumin 4.2 (3.5-5.1) g/dL Discharge Plan Discharge Clinical Impression: Syncope, Atrial fibrillation Patient Disposition: Home, Self-Care Condition: Improved Instructions: Antibiotic Form, A-fib (Atrial Fibrillation) (ED), Syncope (ED) Additional Instructions: Please follow-up with the shoveler you were provided with, call tomorrow to set up a follow-up appointment regarding her possible syncopal episode. You also instructed follow-up with your primary care physician within the next 3-5 days and return to the ED if any new or worsening symptoms develop. You were noted to have an irregular heart rate also known as atrial fibrillation and this requires that you are started on a blood thinner to decrease your risk of stroke. You will be started on a medication called Xarelto to take once daily. You will need to follow-up with cardiology as instructed for further evaluation regarding your new onset atrial fibrillation. Patient Language: Chilean Prescriptions: New Xarelto 20 mg tablet 20 mg PO DAILY Qty: 30 0RF Rx Instructions: must administer with evening meal No Action atenolol 100 mg tablet 100 mg PO QAM omeprazole 40 mg capsule,delayed release(DR/EC) 40 mg PO DAILY simvastatin 40 mg tablet 40 mg PO HS tamsulosin 0.4 mg capsule 0.8 mg PO QAM hydrochlorothiazide 25 mg tablet 25 mg PO DAILY lisinopril 40 mg tablet 40 mg PO DAILY celecoxib [Celebrex] 200 mg Capsule 200 mg PO DAILY Qty: 9 0RF Follow-up/Referrals: Gil Cifuentes MD [Physician] - 3 Days Stephanie,Andrés Morales MD [Primary Care Provider] - 3 Days Time of Disposition: 23:00
--- NOTE | 2024-12-09 23:05 | ECG_ITS ---
Test Date: 2024-12-09 23:27:18 Measurements Intervals [place] Rate: 71 P: 0 DE: 0 QRS: 11 QRSD: 90 T: 60 QT: 386 QTc: 422 Interpretive Statements ATRIAL FIBRILLATION BASELINE ARTIFACT- I, II, V1 ABNORMAL ECG Compared to ECG 12/09/2024 19:22:07 No significant changes Electronically Signed On 12-10-2024 06:31:55 SPEAKING UNIT ASSEMBLER by Keith Saunders D.O.
--- OUTSIDE RECORDS SUMMARY | 2024-12-09 23:09 | XMS_ITS | Clinical Summary ---
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
--- OUTSIDE RECORDS SUMMARY | 2024-12-09 23:09 | XMS_ITS | Referral Summary ---
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
[2024-12-09 23:37] LABS: Prothrombin Time 13.2 Seconds (11.1-14.7)
[2024-12-09 23:38] LABS: Partial Thromboplastin Time 26.1 Seconds (22.3-36.8)
== END 2024-12-10 01:22 | disposition home or self-care (01) ==
LOC: ANHED 23:06
PROVIDERS: Emergency Medicine; Emergency Provider Emergency Medicine; PCP Internal Medicine
DX: I48.91 Unspecified atrial fibrillation (principal); R55 Syncope and collapse; I10 Essential (primary) hypertension; E78.5 Hyperlipidemia, unspecified; K21.9 Gastro-esophageal reflux disease without esophagitis; M19.90 Unspecified osteoarthritis, unspecified site; Z96.641 Presence of right artificial hip joint; Z85.46 Personal history of malignant neoplasm of prostate; Z98.42 Cataract extraction status, left eye; Z98.41 Cataract extraction status, right eye; Z90.49 Acquired absence of other specified parts of digestive tract; Z79.899 Other long term (current) drug therapy
CPT/HCPCS: 36415; 71046; 80053; 83735; 84484; 85025; 85610; 85730; 93005; 99284